=== PATIENT | male | born 1960 | race African-American/Black ===

== ENCOUNTER 2016-06-17 06:15 | Emergency (ER) | payer MEDICAID ==
[~2016-06-17] VITALS: Ht 170.2 cm; Wt 116.1 kg
[~2016-06-17 06:15] MED LIST: ASPI81CH43 PO; CLON0.1T PO; FURO40TA PO; LISI-646 PO; LOVA20TA4 PO; METO-462 PO; NOR5T PO; PANT40T PO; POTA-167 PO
[2016-06-17] MEDS ORDERED: SODIUM CHLORIDE 0.9% 1,000 ML IV ONE (06:54)
[2016-06-17 08:02] LABS: DEFINITIVE VIEW TRANSMISSION; Hemoglobin 13.5 g/dL (13.5-17.5); Mean Corpuscular Hemoglobin 28.4 pg (28.0-32.0); Mean Corpuscular Hgb Conc. 32.8 g/dL (32.0-36.0); Mean Corpuscular Volume 86.5 fL (80.0-100.0); Mean Platelet Volume 8.4 fL (7.4-10.4); Platelet Count (auto) 254 10^3/uL (140-450); White Blood Cell 5.3 10^3/uL (4.4-10.8)
[2016-06-17 08:17] LABS: Metamyelocytes % 0; Myelocytes % 0; Promyelocytes % 0; Reactive Lymphocytes 0
[2016-06-17 08:20] LABS: Albumin 3.5 g/dL (3.4-5.0); BUN/Creatinine Ratio 6.3; Bilirubin, Total 0.4 mg/dL (0.2-1.0); Calcium 8.5 mg/dL (8.5-10.1); Potassium 3.8 mmol/L (3.5-5.1); Total Protein 8.9 g/dL (6.4-8.2)
[2016-06-17 08:25] LABS: INR 1.01 (0.9-1.15); Partial Thromboplastin Time 21.6 sec (22.64-33.71); Prothrombin Time 10.4 sec (9.37-12.3)
[2016-06-17 08:28] LABS: Platelet Estimate Adequate
[2016-06-17 09:08] VITALS: BP 136/89
== END 2016-06-17 10:44 | disposition left against medical advice (07) ==
LOC: ER 06:16
DX: I11.0 Hypertensive heart disease with heart failure (principal); I50.9 Heart failure, unspecified; J44.9 Chronic obstructive pulmonary disease, unspecified; E11.9 Type 2 diabetes mellitus without complications; E78.5 Hyperlipidemia, unspecified; I25.2 Old myocardial infarction; R51 Headache; F17.210 Nicotine dependence, cigarettes, uncomplicated; Z90.49 Acquired absence of other specified parts of digestive tract; Z86.73 Personal history of transient ischemic attack (TIA), and cerebral infarction without residual deficits
CPT/HCPCS: 36415; 70450; 71010; 80053; 80320; 84484; 85007; 85025; 85027; 85610; 85730; 96360; 99285; J7030

== ENCOUNTER 2016-10-26 15:51 | Inpatient (IN) | payer MEDICAID ==
[~2016-10-26] VITALS: Ht 170.2 cm; Wt 105.4 kg
[2016-10-26] MEDS ORDERED: SODIUM CHLORIDE 0.9% 1,000 ML IV ONE (16:22)
[2016-10-26] MEDS ORDERED: MORPHINE SULF INJ 2 MG/ML SYRINGE 1ML IV ONE ×2 (16:30→22:45)
[2016-10-26] MEDS ORDERED: DONNATAL 5ml ORAL Elix (BELLADONNA ALK-PHENOBARB) PO ONE (16:30)
[2016-10-26] MEDS ORDERED: FAMOTIDINE 20 MG TAB PO ONE (16:30)
[2016-10-26] MEDS ORDERED: ALUM & MAG HYDROX-SIMETH LIQ(MAALOX) 30 ML PO ONE (16:30)
[2016-10-26] MEDS ORDERED: METOCLOPRAMIDE HCL 5MG/ml INJ 2ml VIAL IV ONE (16:30)
[2016-10-26] MEDS ORDERED: ONDANSETRON HCL 4 MG/2 ML VIAL ONE (17:00)
[2016-10-26] MEDS ORDERED: ONDANSETRON HCL 4 MG/2 ML VIAL IM ONE (17:15)
[2016-10-26] MEDS ORDERED: MEPERIDINE HCL (50 MG/ML) 1 ML VIAL IM ONE (18:00)
[2016-10-26 20:51] LABS: Basophils # (auto) 0 uL; Basophils % (auto) 0.1 % (0.0-2.0); Eosinophils # (auto) 0 uL; Hematocrit 47.5 % (41.0-53.0); Hemoglobin 15.7 g/dL (13.5-17.5); Lymphocytes # (auto) 1.1 uL; Lymphocytes % (auto) 13.2 % (10.0-50.0); Mean Corpuscular Volume 84.7 fL (80.0-100.0); Mean Platelet Volume 9.1 fL (7.4-10.4); Monocytes # (auto) 0.3 uL; Monocytes % (auto) 3.4 % (0.0-12.0); Neutrophils # (auto) 7.1 uL; Neutrophils % (auto) 83.3 % (37.0-80.0); Platelet Count (auto) 252 10^3/uL (140-450); Red Cell Distribution Width 16.4 % (11.6-16.0); White Blood Cell 8.6 10^3/uL (4.4-10.8)
[2016-10-26 21:09] LABS: Albumin 3.8 g/dL (3.4-5.0); BUN/Creatinine Ratio 9.6; Magnesium 1.7 mg/dL (1.6-2.6); Potassium 4.6 mmol/L (3.5-5.1)
[2016-10-26 21:11] LABS: Bilirubin, Total 0.7 mg/dL (0.2-1.0); Total Protein 10.7 g/dL (6.4-8.2)
[2016-10-26 21:16] LABS: Partial Thromboplastin Time 21.6 sec (22.64-33.71); Prothrombin Time 10.9 sec (9.37-12.3)
[2016-10-26 21:52] LABS: Urine Bilirubin Negative (Negative); Urine Color Yellow (Yellow); Urine Glucose Normal (Normal); Urine Hyaline Cast FEW /lpf (0 - 2); Urine Ketone Negative (Negative); Urine Nitrite Negative (Negative); Urine RBC 1 /hpf (0 - 3); Urine Squamous Epithelial Cell FEW /hpf (<5); Urine Urobilinogen Normal (Negative)
[2016-10-26] MEDS ORDERED: ONDANSETRON HCL 4 MG/2 ML VIAL IV ONE (22:15)
[2016-10-26 22:32] LABS: Urine Blood 1+ /uL (Negative)
[2016-10-26] MEDS ORDERED: cloNIDine HCL 0.1 MG TAB PO ONE (23:30)
[2016-10-27] MEDS ORDERED: SODIUM CHLORIDE 0.9% 1,000 ML IV SCH (00:18)
[2016-10-27] MEDS ORDERED: TEMAZEPAM 15 MG CAP PO PRN (00:30)
[2016-10-27] MEDS ORDERED: HYDROcodone-ACET 5/325MG TAB PO PRN (00:30)
[2016-10-27] MEDS ORDERED: ACETAMINOPHEN 325 MG TAB PO PRN (00:30)
[2016-10-27] MEDS ORDERED: DOCUSATE SOD 100 MG CAP PO PRN (00:30)
[2016-10-27] MEDS ORDERED: SPIRONOLACTONE 25 MG TAB PO ONE (01:00)
[2016-10-27] MEDS ORDERED: cloNIDine HCL 0.1 MG TAB PO ONE (01:00)
[2016-10-27] MEDS ORDERED: FUROSEMIDE 20 MG/2 ML VIAL IV ONE (01:00)
[2016-10-27] MEDS ORDERED: HYDROmorphone HCL 2 MG/ML VL IV ONE (01:30)
[2016-10-27 02:00] VITALS: BP 162/112
[2016-10-27] MEDS: MORPHINE SULF INJ 2 MG/ML SYRINGE 1ML IV PRN ×5 (02:20→20:27)
[2016-10-27] MEDS: ONDANSETRON HCL 4 MG/2 ML VIAL IV PRN ×5 (02:20→20:27)
[2016-10-27 05:15] VITALS: BP 132/107
[2016-10-27] MEDS: SODIUM CHLOR 0.9% PF (SALINE LOCK) 10ML VIAL IV SCH ×3 (06:41→21:46)
[2016-10-27] MEDS: SPIRONOLACTONE 25 MG TAB PO SCH ×3 (06:50→21:46)
[2016-10-27 09:00] VITALS: BP 167/110
[2016-10-27] MEDS ORDERED: FAMOTIDINE (10MG/ML) 2ML VL IV SCH (10:00)
[2016-10-27] MEDS: METOPROLOL TARTRATE 25 MG TAB PO SCH ×2 (10:16→21:46)
[2016-10-27] MEDS: FUROSEMIDE 20 MG/2 ML VIAL IV SCH (10:17)
[2016-10-27 13:00] VITALS: BP 153/105
[2016-10-27 17:00] VITALS: BP 148/74
[2016-10-27] MEDS ORDERED: cloNIDine HCL 0.1 MG TAB PO PRN (17:00)
[2016-10-27] MEDS: FAMOTIDINE (10MG/ML) 2ML VL IV SCH (21:45)
[2016-10-27 22:00] VITALS: BP 153/88
[2016-10-28] MEDS: ONDANSETRON HCL 4 MG/2 ML VIAL IV PRN ×3 (02:36→10:48)
[2016-10-28] MEDS: MORPHINE SULF INJ 2 MG/ML SYRINGE 1ML IV PRN ×3 (02:37→10:49)
[2016-10-28 05:00] VITALS: BP 136/90
[2016-10-28 06:17] LABS: Basophils # (auto) 0 uL; Basophils % (auto) 0.3 % (0.0-2.0); Eosinophils # (auto) 0.1 uL; Hematocrit 44.2 % (41.0-53.0); Hemoglobin 14.7 g/dL (13.5-17.5); Lymphocytes % (auto) 24.9 % (10.0-50.0); Mean Corpuscular Hemoglobin 28.2 pg (28.0-32.0); Mean Corpuscular Hgb Conc. 33.4 g/dL (32.0-36.0); Mean Corpuscular Volume 84.4 fL (80.0-100.0); Mean Platelet Volume 9.5 fL (7.4-10.4); Monocytes # (auto) 0.7 uL; Monocytes % (auto) 8.9 % (0.0-12.0); Neutrophils # (auto) 5.2 uL; Neutrophils % (auto) 64.9 % (37.0-80.0); Platelet Count (auto) 236 10^3/uL (140-450); Red Cell Distribution Width 16.5 % (11.6-16.0)
[2016-10-28 06:34] LABS: Albumin 3.2 g/dL (3.4-5.0); BUN/Creatinine Ratio 14.3; Bilirubin, Total 1.3 mg/dL (0.2-1.0); Total Protein 9.5 g/dL (6.4-8.2)
[2016-10-28] MEDS: SODIUM CHLOR 0.9% PF (SALINE LOCK) 10ML VIAL IV SCH ×2 (06:42→14:00)
[2016-10-28] MEDS: SPIRONOLACTONE 25 MG TAB PO SCH ×2 (06:42→14:00)
[2016-10-28 08:00] VITALS: BP 145/81
[2016-10-28 09:00] VITALS: BP 145/81
[2016-10-28] MEDS: METOPROLOL TARTRATE 25 MG TAB PO SCH (10:24)
[2016-10-28] MEDS: FUROSEMIDE 20 MG/2 ML VIAL IV SCH (10:26)
[2016-10-28] MEDS: FAMOTIDINE (10MG/ML) 2ML VL IV SCH (10:26)
[2016-10-28] MEDS ORDERED: SPIR25TA88 PO (11:59)
[2016-10-28] MEDS ORDERED: PANT40TA2 PO (11:59)
[2016-10-28] MEDS ORDERED: ONDA4TAB5 PO (12:03)
[2016-10-28 13:00] VITALS: BP 130/83
[2016-10-28 14:53] VITALS: BP 130/83
== END 2016-10-28 16:55 | disposition home or self-care (01) | DRG 241 ==
LOC: EDBD 15:51 → ER 16:02 → TELE-WESTW 16:03
PROVIDERS: ADMIT Emergency Medicine; ATTEND Internal Medicine
DX: K29.20 Alcoholic gastritis without bleeding (principal); I11.0 Hypertensive heart disease with heart failure; I50.9 Heart failure, unspecified; K70.30 Alcoholic cirrhosis of liver without ascites; J44.9 Chronic obstructive pulmonary disease, unspecified; I25.10 Atherosclerotic heart disease of native coronary artery without angina pectoris; K21.9 Gastro-esophageal reflux disease without esophagitis; Z86.73 Personal history of transient ischemic attack (TIA), and cerebral infarction without residual deficits; E11.9 Type 2 diabetes mellitus without complications; E66.9 Obesity, unspecified; Z68.36 Body mass index [BMI] 36.0-36.9, adult; F10.10 Alcohol abuse, uncomplicated; F17.210 Nicotine dependence, cigarettes, uncomplicated; G47.30 Sleep apnea, unspecified; I25.2 Old myocardial infarction; Z82.49 Family history of ischemic heart disease and other diseases of the circulatory system; Z83.3 Family history of diabetes mellitus; Z79.82 Long term (current) use of aspirin; Z90.49 Acquired absence of other specified parts of digestive tract; Z84.89 Family history of other specified conditions; G40.509 Epileptic seizures related to external causes, not intractable, without status epilepticus
CPT/HCPCS: 36415; 74176; 80053; 80320; 81001; 82140; 83690; 83735; 84443; 85025; 85610; 85730; 93005; 94660; 94761; 96361; 96374; 96375; 96376; J2405; J3490

== ENCOUNTER 2017-03-01 23:48 | Inpatient (IN) | payer MEDICAID ==
[~2017-03-01] VITALS: Ht 170.2 cm; Wt 109.7 kg
[~2017-03-01 23:48] MED LIST changes: +HYDR-4663 PO; -LOVA20TA4 PO; -NOR5T PO; +ONDA4TAB5 PO; +PANT40TA2 PO; +SPIR25TA88 PO
[2017-03-02] MEDS ORDERED: cloNIDine HCL 0.1 MG TAB PO ONE ×2 (00:15→05:30)
[2017-03-02] MEDS ORDERED: hydrALAZINE HCL 20 MG/ML VL IV ONE (00:15)
[2017-03-02 01:13] LABS: Alkaline Phosphatase 143 U/L (45-117); Amylase 61 U/L (25-115); Anion Gap 11 (5-15); Aspartate Aminotransferase 157 U/L (15-37); BUN/Creatinine Ratio 7.9; Blood Urea Nitrogen 8 mg/dL (7-18); Calcium 9.2 mg/dL (8.5-10.1); Carbon Dioxide 22 mmol/L (21-32); Chloride 104 mmol/L (98-107); GFR African American 98 mL/min; GFR Non-African American 81 mL/min; Glucose 182 mg/dL (74-106); Magnesium 1.6 mg/dL (1.6-2.6); Potassium 3.7 mmol/L (3.5-5.1); Sodium 137 mmol/L (136-145); Total Protein 10.6 g/dL (6.4-8.2)
[2017-03-02] MEDS ORDERED: HYDROmorphone HCL 2 MG/ML VL IV ONE (02:30)
[2017-03-02] MEDS ORDERED: ONDANSETRON HCL 4 MG/2 ML VIAL IV ONE (02:30)
[2017-03-02 03:38] LABS: Urine Blood 1+ /uL (Negative); Urine Color Brown (Yellow); Urine Glucose TRACE mg/dL (Normal); Urine Ketone 1+ (Negative); Urine Mucus FEW (None Seen); Urine Nitrite Negative (Negative); Urine RBC 14 /hpf (0 - 3); Urine Squamous Epithelial Cell FEW /hpf (<5)
[2017-03-02 03:42] LABS: Urine Bilirubin POSITIVE (Negative)
[2017-03-02] MEDS ORDERED: PROMETHAZINE HCL 25 MG/ML 1ML IV ONE (03:45)
[2017-03-02] MEDS ORDERED: LORazepam 2MG/ML-1ML VIAL IV ONE (03:45)
[2017-03-02] MEDS ORDERED: cloNIDine HCL 0.1 MG TAB ONE (05:21)
[2017-03-02 05:47] LABS: Basophils # (auto) 0 uL; Basophils % (auto) 0.5 % (0.0-2.0); Eosinophils # (auto) 0 uL; Hematocrit 52.5 % (41.0-53.0); Hemoglobin 18.7 g/dL (13.5-17.5); Lymphocytes % (auto) 12.1 % (10.0-50.0); Mean Corpuscular Hemoglobin 31.3 pg (28.0-32.0); Mean Corpuscular Hgb Conc. 35.6 g/dL (32.0-36.0); Mean Corpuscular Volume 87.8 fL (80.0-100.0); Mean Platelet Volume 9.3 fL (6.9-10.8); Monocytes # (auto) 0.3 uL; Neutrophils # (auto) 6.7 uL; Neutrophils % (auto) 83.4 % (37.0-80.0); Nucleated Red Blood Cells % 1.3 %; Platelet Count (auto) 188 10^3/uL (140-450); Red Cell Distribution Width 14.5 % (11.8-14.3)
[2017-03-02] MEDS ORDERED: LABETALOL HCL 5 MG/ML 4ML SYRINGE IV ONE ×3 (06:52→08:30)
[2017-03-02] MEDS ORDERED: SODIUM CHLORIDE 0.9% 1,000 ML IV ONE (08:17)
[2017-03-02] MEDS ORDERED: LORazepam 0.5 MG TAB PO PRN (08:30)
[2017-03-02] MEDS ORDERED: cefTRIAXone 1GM/50ML D5W 50 ML IV ONE (08:30)
[2017-03-02] MEDS ORDERED: MORPHINE SULF INJ 2 MG/ML SYRINGE 1ML IV ONE (08:30)
[2017-03-02] MEDS ORDERED: DEXTROSE (50%) 50ML SYRG IV PRN (08:30)
[2017-03-02] MEDS ORDERED: chlordiazePOXIDE HCL 25 MG CAP PO PRN (08:30)
[2017-03-02] MEDS ORDERED: MORPHINE SULF INJ 2 MG/ML SYRINGE 1ML IV PRN (08:30)
[2017-03-02] MEDS ORDERED: THIAMINE HCL 100 MG/ML 2ML VIAL IV ONE (08:30)
[2017-03-02] MEDS ORDERED: TEMAZEPAM 15 MG CAP PO PRN (08:30)
[2017-03-02] MEDS ORDERED: LABETALOL HCL 5 MG/ML ML 20ML VIAL IV PRN (08:30)
[2017-03-02] MEDS ORDERED: LABETALOL HCL 5 MG/ML 4ML SYRINGE IV PRN ×2 (08:30)
[2017-03-02] MEDS ORDERED: NITROGLYCERIN 0.4 MG SL TAB SL PRN (08:30)
[2017-03-02] MEDS: cloNIDine HCL 0.1 MG TAB PO SCH ×2 (08:49→22:00)
[2017-03-02] MEDS: LISINOPRIL 20 MG TAB PO SCH ×2 (08:50→22:00)
[2017-03-02] MEDS: PANTOPRAZOLE 40 MG TAB PO SCH (08:50)
[2017-03-02] MEDS: METOPROLOL TARTRATE 50 MG TAB PO SCH ×2 (08:52→22:00)
[2017-03-02] MEDS: THIAMINE HCL 100 MG/ML 2ML VIAL IV SCH (08:52)
[2017-03-02] MEDS: cefTRIAXone 1GM/50ML D5W 50 ML IV SCH (08:56)
[2017-03-02] MEDS: PROMETHAZINE HCL 25 MG/ML 1ML IV PRN ×2 (09:05→16:26)
[2017-03-02] MEDS ORDERED: METOPROLOL TARTRATE 50 MG PO SCH (10:00)
[2017-03-02] MEDS: InsuLIN REG 1unit/0.01ml Soln (100units/ml) SC SCH ×2 (11:03→17:47)
[2017-03-02] MEDS: ACCU-CHEK COMFORT CURVE STRIP VI SCH ×2 (11:04→17:47)
[2017-03-02] MEDS: chlordiazePOXIDE HCL 5 MG CAP PO SCH ×2 (11:55→17:46)
[2017-03-02] MEDS: MORPHINE SULF INJ 2 MG/ML SYRINGE 1ML IV PRN (16:17)
[2017-03-02 16:31] VITALS: BP 102/68
[2017-03-02 20:00] VITALS: BP 107/57
[2017-03-02 22:00] VITALS: BP 107/57
[2017-03-03] MEDS: ACCU-CHEK COMFORT CURVE STRIP VI SCH ×4 (00:20→18:16)
[2017-03-03] MEDS: chlordiazePOXIDE HCL 5 MG CAP PO SCH ×4 (00:21→18:15)
[2017-03-03] MEDS: MORPHINE SULF INJ 2 MG/ML SYRINGE 1ML IV PRN ×4 (03:53→22:14)
[2017-03-03 05:00] VITALS: BP 130/80
[2017-03-03 05:54] LABS: Basophils # (auto) 0 uL; Basophils % (auto) 0.7 % (0.0-2.0); Eosinophils # (auto) 0.1 uL; Eosinophils % (auto) 0.8 % (0.0-7.0); Hematocrit 44.1 % (41.0-53.0); Lymphocytes # (auto) 1.4 uL; Lymphocytes % (auto) 20.9 % (10.0-50.0); Mean Corpuscular Hemoglobin 29.9 pg (28.0-32.0); Mean Corpuscular Volume 88.1 fL (80.0-100.0); Mean Platelet Volume 9.1 fL (6.9-10.8); Monocytes # (auto) 0.5 uL; Monocytes % (auto) 6.7 % (0.0-12.0); Neutrophils # (auto) 4.9 uL; Neutrophils % (auto) 70.9 % (37.0-80.0); Nucleated Red Blood Cells % 0.1 %; Platelet Count (auto) 158 10^3/uL (140-450); Red Cell Distribution Width 14.4 % (11.8-14.3); White Blood Cell 6.9 10^3/uL (4.4-10.8)
[2017-03-03] MEDS: InsuLIN REG 1unit/0.01ml Soln (100units/ml) SC SCH ×4 (06:00→18:00)
[2017-03-03 06:20] LABS: Potassium 3.4 mmol/L (3.5-5.1)
[2017-03-03 06:24] LABS: BUN/Creatinine Ratio 13.1; Calcium 8.4 mg/dL (8.5-10.1)
[2017-03-03 06:26] LABS: Total Protein 8.5 g/dL (6.4-8.2)
[2017-03-03] MEDS: THIAMINE HCL 100 MG/ML 2ML VIAL IV SCH (09:51)
[2017-03-03] MEDS: cefTRIAXone 1GM/50ML D5W 50 ML IV SCH (09:51)
[2017-03-03] MEDS: PANTOPRAZOLE 40 MG TAB PO SCH (09:52)
[2017-03-03] MEDS: METOPROLOL TARTRATE 50 MG TAB PO SCH ×2 (09:52→22:08)
[2017-03-03] MEDS: cloNIDine HCL 0.1 MG TAB PO SCH ×2 (09:52→22:08)
[2017-03-03] MEDS: LISINOPRIL 20 MG TAB PO SCH ×2 (09:53→22:09)
[2017-03-03 11:43] VITALS: BP 136/85
[2017-03-03] MEDS ORDERED: POTASSIUM CHL 20 Meq TABLET PO ONE ×2 (14:15→14:45)
[2017-03-03] MEDS ORDERED: LACTULOSE 20Gm/30ML SOLN PO ONE ×2 (14:15→14:45)
[2017-03-03 17:47] VITALS: BP 121/76
[2017-03-03] MEDS ORDERED: GABAPENTIN 100 MG CAP PO SCH (22:00)
[2017-03-03 22:07] VITALS: BP 140/84
[2017-03-03] MEDS: PROMETHAZINE HCL 25 MG/ML 1ML IV PRN (22:15)
[2017-03-04] MEDS: chlordiazePOXIDE HCL 5 MG CAP PO SCH ×3 (00:47→12:54)
[2017-03-04] MEDS: ACCU-CHEK COMFORT CURVE STRIP VI SCH ×3 (00:48→11:31)
[2017-03-04 04:07] VITALS: BP 147/9
[2017-03-04] MEDS: MORPHINE SULF INJ 2 MG/ML SYRINGE 1ML IV PRN ×2 (05:04→10:13)
[2017-03-04] MEDS: PROMETHAZINE HCL 25 MG/ML 1ML IV PRN ×2 (05:04→10:13)
[2017-03-04] MEDS: InsuLIN REG 1unit/0.01ml Soln (100units/ml) SC SCH ×3 (06:00→11:32)
[2017-03-04 07:54] VITALS: BP 117/72
[2017-03-04] MEDS: cloNIDine HCL 0.1 MG TAB PO SCH (10:00)
[2017-03-04] MEDS: LISINOPRIL 20 MG TAB PO SCH (10:00)
[2017-03-04] MEDS: THIAMINE HCL 100 MG/ML 2ML VIAL IV SCH (10:22)
[2017-03-04] MEDS: METOPROLOL TARTRATE 50 MG TAB PO SCH (10:22)
[2017-03-04] MEDS: PANTOPRAZOLE 40 MG TAB PO SCH (10:23)
[2017-03-04 12:04] VITALS: BP 129/76
[2017-03-04 13:07] VITALS: BP 135/77
[2017-03-04 13:28] VITALS: BP 135/77
== END 2017-03-04 15:29 | disposition home or self-care (01) | DRG 241 ==
LOC: EDBD 23:48 → ER 23:56 → TELE 23:57 → TELE-EAST 03-02 16:27
PROVIDERS: ADMIT Internal Medicine; ATTEND Internal Medicine
DX: K29.20 Alcoholic gastritis without bleeding (principal); K70.30 Alcoholic cirrhosis of liver without ascites; I11.0 Hypertensive heart disease with heart failure; I50.9 Heart failure, unspecified; I69.354 Hemiplegia and hemiparesis following cerebral infarction affecting left non-dominant side; Z68.41 Body mass index [BMI] 40.0-44.9, adult; B19.20 Unspecified viral hepatitis C without hepatic coma; F17.210 Nicotine dependence, cigarettes, uncomplicated; E11.9 Type 2 diabetes mellitus without complications; F10.10 Alcohol abuse, uncomplicated; Y90.9 Presence of alcohol in blood, level not specified; E87.6 Hypokalemia; K59.00 Constipation, unspecified; K21.9 Gastro-esophageal reflux disease without esophagitis; J44.9 Chronic obstructive pulmonary disease, unspecified; E78.5 Hyperlipidemia, unspecified; E66.01 Morbid (severe) obesity due to excess calories; I25.2 Old myocardial infarction; I25.10 Atherosclerotic heart disease of native coronary artery without angina pectoris; Z82.49 Family history of ischemic heart disease and other diseases of the circulatory system; Z83.3 Family history of diabetes mellitus; Z90.49 Acquired absence of other specified parts of digestive tract; Z71.6 Tobacco abuse counseling; Z91.14 Patient's other noncompliance with medication regimen
CPT/HCPCS: 36415; 70450; 71020; 74176; 80053; 80307; 80320; 81001; 82150; 82962; 83036; 83690; 83735; 84484; 85025; 85652; 86141; 87086; 93005; 93970; 96365; 96375; 96376; J0696; J1815; J2405; J3490

== ENCOUNTER 2017-07-22 14:57 | Inpatient (IN) | payer MEDICAID ==
[~2017-07-22] VITALS: Ht 170.2 cm; Wt 108.8 kg
[~2017-07-22 14:57] MED LIST changes: -FURO40TA PO; -HYDR-4663 PO; +HYDR-4683 PO; -ONDA4TAB5 PO; -PANT40TA2 PO; -POTA-167 PO; -SPIR25TA88 PO
[2017-07-22] MEDS ORDERED: SODIUM CHLORIDE 0.9% 1,000 ML IVB ONE (15:11)
[2017-07-22] MEDS ORDERED: SODIUM CHLORIDE 0.9% 1,000 ML IV ONE (15:11)
[2017-07-22] MEDS ORDERED: PIPERACILLIN-TAZOB 3.375GM 50 ML IV ONE (15:15)
[2017-07-22] MEDS ORDERED: ONDANSETRON HCL 4 MG/2 ML VIAL IV ONE (15:15)
[2017-07-22] MEDS ORDERED: MORPHINE SULFATE 4 MG/ML SYR/VIAL IV ONE (15:15)
[2017-07-22] MEDS ORDERED: NICARDIPINE 25MG/250ML BAG KIT 250 ML IV SCH (15:29)
[2017-07-22 16:09] LABS: Basophils # (auto) 0.1 uL; Basophils % (auto) 0.9 % (0.0-2.0); Eosinophils # (auto) 0 uL; Eosinophils % (auto) 0.2 % (0.0-7.0); Hemoglobin 15.3 g/dL (13.5-17.5); Lymphocytes # (auto) 1.5 uL; Lymphocytes % (auto) 20.9 % (10.0-50.0); Mean Corpuscular Hemoglobin 29.3 pg (28.0-32.0); Mean Corpuscular Volume 86.1 fL (80.0-100.0); Monocytes # (auto) 0.4 uL; Monocytes % (auto) 5.2 % (0.0-12.0); Neutrophils # (auto) 5.2 uL; Neutrophils % (auto) 72.8 % (37.0-80.0); Nucleated Red Blood Cells % 0.6 %; Platelet Count (auto) 303 10^3/uL (140-450); Red Blood Cells 5.23 10^6/uL (4.5-5.90); White Blood Cell 7.1 10^3/uL (4.4-10.8)
[2017-07-22 16:21] LABS: Alanine Aminotransferase 185 U/L (16-61); Albumin 3.3 g/dL (3.4-5.0); Alkaline Phosphatase 138 U/L (45-117); Anion Gap 12 (5-15); Aspartate Aminotransferase 220 U/L (15-37); BUN/Creatinine Ratio 10.4; Bilirubin, Total 0.8 mg/dL (0.2-1.0); Blood Urea Nitrogen 10 mg/dL (7-18); Calcium 9.2 mg/dL (8.5-10.1); Carbon Dioxide 25 mmol/L (21-32); Chloride 103 mmol/L (98-107); GFR African American 104 mL/min; GFR Non-African American 86 mL/min; Glucose 158 mg/dL (74-106); Lipase 167 U/L (73-393); Sodium 140 mmol/L (136-145); Total Protein 10.3 g/dL (6.4-8.2)
[2017-07-22] MEDS ORDERED: MORPHINE SULFATE 4 MG/ML SYR/VIAL IV PRN ×2 (16:45)
[2017-07-22] MEDS ORDERED: PANTOPRAZOLE 40 MG/10 ML VIAL IV ONE (16:45)
[2017-07-22] MEDS ORDERED: NITROGLYCERIN 0.4 MG SL TAB SL PRN (16:45)
[2017-07-22] MEDS ORDERED: ONDANSETRON HCL 4 MG/2 ML VIAL IV PRN (16:45)
[2017-07-22 17:08] LABS: INR 0.98 (0.9-1.15); Partial Thromboplastin Time 23.9 sec (22.64-33.71); Prothrombin Time 10.7 sec (9.37-12.3)
[2017-07-22] MEDS ORDERED: DEXTROSE (50%) 50ML SYRG IV PRN (17:15)
[2017-07-22] MEDS: NICARDIPINE 25MG/250ML BAG KIT 250 ML IV SCH ×2 (17:20→21:48)
[2017-07-22] MEDS: ASPirin 81 mg TAB PO SCH (17:29)
[2017-07-22] MEDS: LORazepam 2MG/ML-1ML VIAL IV PRN (17:29)
[2017-07-22] MEDS: chlordiazePOXIDE HCL 25 MG CAP PO PRN (17:30)
[2017-07-22] MEDS: PROMETHAZINE HCL 25 MG/ML 1ML IV PRN (17:30)
[2017-07-22] MEDS ORDERED: IOHEXOL 300 MG/ML 100ML BOTTLE IJ ONE (17:42)
[2017-07-22 20:30] LABS: Urine Bacteria NONE SEEN /hpf (None Seen); Urine Blood Negative /uL (Negative); Urine Specific Gravity 1.012 (1.001-1.035); Urine WBC <1 /hpf (0 - 3)
[2017-07-22 20:40] LABS: Alcohol, Urine < 3.0 mg/dL (0-5); Amphetamine Screen, Urine NEGATIVE (NEGATIVE); Barbiturate Scree,Urine NEGATIVE (NEGATIVE); Benzodiazephine Screen, Urine NEGATIVE (NEGATIVE); Cannabinoid Screen, Urine NEGATIVE (NEGATIVE); Cocaine Screen, Urine NEGATIVE (NEGATIVE); Opiate Scree,Urine POSITIVE (NEGATIVE); Phencyclidine Screen, Urine NEGATIVE (NEGATIVE)
[2017-07-22] MEDS: THIAMINE INJ 100 MG, MULTIPLE VITAMIN 10 ML, FOLIC ACID 1 MG, MAGNESIUM SULF SDV 50% 8 ... IV SCH ×5 (21:00)
[2017-07-22] MEDS: ACCU-CHEK COMFORT CURVE STRIP VI SCH (21:52)
[2017-07-22] MEDS ORDERED: HYDROcodone-ACET 5/325MG TAB PO SCH (22:00)
[2017-07-22] MEDS: cloNIDine HCL 0.1 MG TAB PO SCH (22:01)
[2017-07-22] MEDS: LISINOPRIL 20 MG TAB PO SCH (22:01)
[2017-07-22] MEDS: InsuLIN REG 1unit/0.01ml Soln (100units/ml) SC SCH (22:01)
[2017-07-23] VITALS (30 sets, daily range): BP systolic 84–177; BP diastolic 47–114
[2017-07-23] MEDS: MORPHINE SULFATE 4 MG/ML SYR/VIAL IV PRN ×2 (00:28→10:07)
[2017-07-23] MEDS: PROMETHAZINE HCL 25 MG/ML 1ML IV PRN ×3 (00:28→16:54)
[2017-07-23] MEDS: NICARDIPINE 25MG/250ML BAG KIT 250 ML IV SCH ×2 (01:40→08:23)
[2017-07-23] MEDS: chlordiazePOXIDE HCL 25 MG CAP PO PRN ×2 (03:32→10:06)
[2017-07-23] MEDS: LORazepam 2MG/ML-1ML VIAL IV PRN (03:32)
[2017-07-23] MEDS: PANTOPRAZOLE 40 MG/10 ML VIAL IV SCH ×2 (06:21→17:31)
[2017-07-23 07:00] LABS: Albumin 3.2 g/dL (3.4-5.0); BUN/Creatinine Ratio 10.7; Calcium 9.3 mg/dL (8.5-10.1); Potassium 3.2 mmol/L (3.5-5.1)
[2017-07-23 07:02] LABS: Bilirubin, Total 1.1 mg/dL (0.2-1.0); Total Protein 10.2 g/dL (6.4-8.2)
[2017-07-23 07:04] LABS: Basophils # (auto) 0.1 uL; Basophils % (auto) 0.6 % (0.0-2.0); Eosinophils # (auto) 0 uL; Hematocrit 42.8 % (41.0-53.0); Hemoglobin 14.8 g/dL (13.5-17.5); Lymphocytes # (auto) 1.9 uL; Lymphocytes % (auto) 18.9 % (10.0-50.0); Mean Corpuscular Hemoglobin 29.6 pg (28.0-32.0); Mean Corpuscular Hgb Conc. 34.5 g/dL (32.0-36.0); Mean Corpuscular Volume 85.7 fL (80.0-100.0); Monocytes # (auto) 0.8 uL; Monocytes % (auto) 8.3 % (0.0-12.0); Neutrophils # (auto) 7.3 uL; Neutrophils % (auto) 72.2 % (37.0-80.0); Nucleated Red Blood Cells % 0.8 %; Platelet Count (auto) 281 10^3/uL (140-450); Red Cell Distribution Width 15.3 % (11.8-14.3); White Blood Cell 10.2 10^3/uL (4.4-10.8)
[2017-07-23] MEDS: ACCU-CHEK COMFORT CURVE STRIP VI SCH ×4 (07:39→22:00)
[2017-07-23] MEDS: InsuLIN REG 1unit/0.01ml Soln (100units/ml) SC SCH ×4 (08:15→23:11)
[2017-07-23] MEDS ORDERED: PANTOPRAZOLE 40 MG/10 ML VIAL IV SCH (10:00)
[2017-07-23] MEDS: ASPirin 81 mg TAB PO SCH (10:07)
[2017-07-23] MEDS: LISINOPRIL 20 MG TAB PO SCH ×2 (10:08→22:30)
[2017-07-23] MEDS: cloNIDine HCL 0.1 MG TAB PO SCH ×2 (10:08→22:29)
[2017-07-23] MEDS: THIAMINE INJ 100 MG, MULTIPLE VITAMIN 10 ML, FOLIC ACID 1 MG, MAGNESIUM SULF SDV 50% 8 ... IV SCH ×5 (13:16)
[2017-07-23] MEDS ORDERED: POTASSIUM CHL 20 Meq TABLET PO ONE (15:30)
[2017-07-23] MEDS ORDERED: METOPROLOL TARTRATE 50 MG TAB PO ONE (15:45)
[2017-07-23] MEDS: HYDROcodone-ACET 5/325MG TAB PO PRN (17:27)
[2017-07-23 20:43] LABS: Potassium 3.4 mmol/L (3.5-5.1)
[2017-07-23 21:13] LABS: Calcium 8.6 mg/dL (8.5-10.1)
[2017-07-23] MEDS: METOPROLOL TARTRATE 50 MG TAB PO SCH (22:29)
[2017-07-24] MEDS: LORazepam 2MG/ML-1ML VIAL IV PRN ×3 (00:46→20:38)
[2017-07-24] MEDS: PROMETHAZINE HCL 25 MG/ML 1ML IV PRN ×3 (00:47→19:58)
[2017-07-24] MEDS: chlordiazePOXIDE HCL 25 MG CAP PO PRN ×4 (00:52→20:38)
[2017-07-24] MEDS: HYDROcodone-ACET 5/325MG TAB PO PRN (01:00)
[2017-07-24 05:01] VITALS: BP 154/91
[2017-07-24] MEDS: PANTOPRAZOLE 40 MG/10 ML VIAL IV SCH ×2 (06:24→18:12)
[2017-07-24] MEDS: ACCU-CHEK COMFORT CURVE STRIP VI SCH ×4 (06:45→22:00)
[2017-07-24] MEDS: InsuLIN REG 1unit/0.01ml Soln (100units/ml) SC SCH ×4 (06:45→22:00)
[2017-07-24 07:06] LABS: Basophils # (auto) 0 uL; Basophils % (auto) 0.5 % (0.0-2.0); Eosinophils # (auto) 0 uL; Eosinophils % (auto) 0.3 % (0.0-7.0); Hematocrit 45.3 % (41.0-53.0); Hemoglobin 15.5 g/dL (13.5-17.5); Lymphocytes # (auto) 1.5 uL; Lymphocytes % (auto) 15.9 % (10.0-50.0); Mean Corpuscular Hemoglobin 29.4 pg (28.0-32.0); Mean Corpuscular Hgb Conc. 34.2 g/dL (32.0-36.0); Mean Corpuscular Volume 85.8 fL (80.0-100.0); Monocytes # (auto) 1.2 uL; Monocytes % (auto) 13.2 % (0.0-12.0); Neutrophils # (auto) 6.5 uL; Neutrophils % (auto) 70.1 % (37.0-80.0); Nucleated Red Blood Cells % 0.4 %; Platelet Count (auto) 284 10^3/uL (140-450); Red Blood Cells 5.28 10^6/uL (4.5-5.90); White Blood Cell 9.3 10^3/uL (4.4-10.8)
[2017-07-24 07:15] LABS: Albumin 3.1 g/dL (3.4-5.0); Calcium 9.3 mg/dL (8.5-10.1); Magnesium 2.4 mg/dL (1.6-2.6)
[2017-07-24 07:21] LABS: BUN/Creatinine Ratio 12.9; Bilirubin, Total 1.5 mg/dL (0.2-1.0)
[2017-07-24 07:52] VITALS: BP 140/90
[2017-07-24 08:00] VITALS: BP 140/90
[2017-07-24 09:39] LABS: Hepatitis B Surface Antigen Negative (Negative)
[2017-07-24 10:05] LABS: Hepatitis B Core IgM Negative
[2017-07-24 10:06] LABS: Hepatitis A Ab IgM Negative
[2017-07-24 10:26] LABS: Hepatitis C Antibody Positive (Negative)
[2017-07-24] MEDS: ASPirin 81 mg TAB PO SCH (11:01)
[2017-07-24] MEDS: LISINOPRIL 20 MG TAB PO SCH ×2 (11:02→22:00)
[2017-07-24] MEDS: cloNIDine HCL 0.1 MG TAB PO SCH ×2 (11:02→22:00)
[2017-07-24] MEDS: METOPROLOL TARTRATE 50 MG TAB PO SCH ×2 (11:03→22:00)
[2017-07-24] MEDS: THIAMINE INJ 100 MG, MULTIPLE VITAMIN 10 ML, FOLIC ACID 1 MG, MAGNESIUM SULF SDV 50% 8 ... IV SCH ×5 (11:19)
[2017-07-24 11:52] VITALS: BP 145/97
[2017-07-24] MEDS ORDERED: HYDR-531 PO (14:25)
[2017-07-24] MEDS: HYDROcodone-ACET 10/325MG TAB PO PRN (14:40)
[2017-07-24 16:50] VITALS: BP 90/59
[2017-07-24 22:25] VITALS: BP 113/63
[2017-07-25 05:10] VITALS: BP 91/50
[2017-07-25] MEDS: PANTOPRAZOLE 40 MG/10 ML VIAL IV SCH ×2 (06:53→22:10)
[2017-07-25] MEDS: InsuLIN REG 1unit/0.01ml Soln (100units/ml) SC SCH ×4 (07:00→22:05)
[2017-07-25] MEDS: ACCU-CHEK COMFORT CURVE STRIP VI SCH ×4 (07:09→22:09)
[2017-07-25 07:34] LABS: Albumin 3.1 g/dL (3.4-5.0); BUN/Creatinine Ratio 11.8; Calcium 8.5 mg/dL (8.5-10.1); Potassium 3.8 mmol/L (3.5-5.1)
[2017-07-25 07:37] LABS: Bilirubin, Total 0.9 mg/dL (0.2-1.0); Total Protein 9.4 g/dL (6.4-8.2)
[2017-07-25 08:00] VITALS: BP 94/73
[2017-07-25 09:00] VITALS: BP 94/73
[2017-07-25] MEDS: cloNIDine HCL 0.1 MG TAB PO SCH ×2 (10:00→22:00)
[2017-07-25] MEDS: LISINOPRIL 20 MG TAB PO SCH (10:00)
[2017-07-25] MEDS: METOPROLOL TARTRATE 50 MG TAB PO SCH (10:00)
[2017-07-25] MEDS: ASPirin 81 mg TAB PO SCH (10:43)
[2017-07-25] MEDS ORDERED: guaiFENesin-DM 100/10mg/5ml SYR PO PRN (11:30)
[2017-07-25] MEDS: SODIUM CHLORIDE 0.9% 1,000 ML IV SCH (15:00)
[2017-07-25] MEDS: SALINE 0.65 % NASAL SPRAY 45ML BOTTLE EACHNOSTRI SCH ×2 (17:47→22:07)
[2017-07-25] MEDS: THIAMINE HCL 100 MG TAB PO SCH (17:56)
[2017-07-25 19:30] VITALS: BP 80/60
[2017-07-25 20:38] VITALS: BP 80/60
[2017-07-25 22:00] VITALS: BP 82/57
[2017-07-25] MEDS ORDERED: METOPROLOL TARTRATE 25 MG TAB PO SCH (22:00)
[2017-07-26] MEDS: SODIUM CHLORIDE 0.9% 1,000 ML IV SCH ×2 (00:28→14:10)
[2017-07-26] MEDS: LORazepam 2MG/ML-1ML VIAL IV PRN (04:47)
[2017-07-26] MEDS: HYDROcodone-ACET 10/325MG TAB PO PRN ×3 (04:48→16:40)
[2017-07-26 05:00] VITALS: BP 116/69
[2017-07-26] MEDS: PANTOPRAZOLE 40 MG/10 ML VIAL IV SCH (06:00)
[2017-07-26] MEDS: InsuLIN REG 1unit/0.01ml Soln (100units/ml) SC SCH (06:09)
[2017-07-26] MEDS: ACCU-CHEK COMFORT CURVE STRIP VI SCH (06:09)
[2017-07-26 08:23] VITALS: BP 110/76
[2017-07-26] MEDS: chlordiazePOXIDE HCL 25 MG CAP PO PRN (09:00)
[2017-07-26] MEDS: cloNIDine HCL 0.1 MG TAB PO SCH ×2 (10:00→22:00)
[2017-07-26] MEDS: THIAMINE HCL 100 MG TAB PO SCH (10:00)
[2017-07-26] MEDS: ASPirin 81 mg TAB PO SCH (10:00)
[2017-07-26] MEDS: SALINE 0.65 % NASAL SPRAY 45ML BOTTLE EACHNOSTRI SCH ×2 (10:00→22:09)
[2017-07-26 10:27] LABS: BUN/Creatinine Ratio 22.2; Bilirubin, Total 0.7 mg/dL (0.2-1.0); Calcium 8.2 mg/dL (8.5-10.1); Potassium 3.8 mmol/L (3.5-5.1); Total Protein 9.1 g/dL (6.4-8.2)
[2017-07-26 11:58] VITALS: BP 118/58
[2017-07-26] MEDS: MULTIPLE VITAMIN 10 ML, FOLIC ACID 1 MG, MAGNESIUM SULF SDV 50% 8 MEQ in D5W 5% 1,000 ML IV SCH (12:00)
[2017-07-26] MEDS: GABAPENTIN 300 MG CAP PO SCH ×2 (12:53→22:09)
[2017-07-26 16:52] VITALS: BP 108/68
[2017-07-26 21:52] VITALS: BP 117/79
[2017-07-27] MEDS: SODIUM CHLORIDE 0.9% 1,000 ML IV SCH ×2 (03:30→18:01)
[2017-07-27 04:45] VITALS: BP 136/81
[2017-07-27] MEDS: HYDROcodone-ACET 10/325MG TAB PO PRN ×4 (07:50→18:42)
[2017-07-27 08:00] VITALS: BP 142/87
[2017-07-27] MEDS: LORazepam 2MG/ML-1ML VIAL IV PRN ×2 (08:23→16:33)
[2017-07-27 09:02] LABS: BUN/Creatinine Ratio 20.2; Calcium 8.6 mg/dL (8.5-10.1); Potassium 4.2 mmol/L (3.5-5.1)
[2017-07-27] MEDS: GABAPENTIN 300 MG CAP PO SCH ×2 (10:22→21:34)
[2017-07-27] MEDS: cloNIDine HCL 0.1 MG TAB PO SCH ×2 (10:23→21:33)
[2017-07-27] MEDS: PANTOPRAZOLE 40 MG TAB PO SCH (10:23)
[2017-07-27] MEDS: SALINE 0.65 % NASAL SPRAY 45ML BOTTLE EACHNOSTRI SCH ×2 (10:23→21:33)
[2017-07-27] MEDS: THIAMINE HCL 100 MG TAB PO SCH (10:23)
[2017-07-27] MEDS: ASPirin 81 mg TAB PO SCH (10:23)
[2017-07-27] MEDS: chlordiazePOXIDE HCL 25 MG CAP PO PRN ×2 (10:46→10:47)
[2017-07-27] MEDS: MULTIPLE VITAMIN 10 ML, FOLIC ACID 1 MG, MAGNESIUM SULF SDV 50% 8 MEQ in D5W 5% 1,000 ML IV SCH (12:00)
[2017-07-27 12:22] VITALS: BP 132/100
[2017-07-27 13:55] LABS: Amylase 84 U/L (25-115); Lipase 287 U/L (73-393)
[2017-07-27 16:39] VITALS: BP 149/100
[2017-07-27 22:00] VITALS: BP 131/67
[2017-07-28] MEDS: chlordiazePOXIDE HCL 25 MG CAP PO PRN (03:50)
[2017-07-28] MEDS: HYDROcodone-ACET 10/325MG TAB PO PRN (03:50)
[2017-07-28] MEDS: LORazepam 2MG/ML-1ML VIAL IV PRN (05:08)
[2017-07-28 05:17] VITALS: BP 167/99
[2017-07-28 05:18] VITALS: BP 142/94
[2017-07-28] MEDS: SODIUM CHLORIDE 0.9% 1,000 ML IV SCH ×2 (06:02→10:34)
[2017-07-28 09:00] VITALS: BP 149/91
[2017-07-28] MEDS: cloNIDine HCL 0.1 MG TAB PO SCH (09:03)
[2017-07-28] MEDS: THIAMINE HCL 100 MG TAB PO SCH (09:03)
[2017-07-28] MEDS: PANTOPRAZOLE 40 MG TAB PO SCH (09:04)
[2017-07-28] MEDS: GABAPENTIN 300 MG CAP PO SCH (09:05)
[2017-07-28] MEDS: ASPirin 81 mg TAB PO SCH (09:05)
[2017-07-28] MEDS: SALINE 0.65 % NASAL SPRAY 45ML BOTTLE EACHNOSTRI SCH (09:06)
[2017-07-28 10:51] LABS: Folate (Folic Acid) > 24.00 ng/mL (5.38-24)
[2017-07-28] MEDS: MULTIPLE VITAMIN 10 ML, FOLIC ACID 1 MG, MAGNESIUM SULF SDV 50% 8 MEQ in D5W 5% 1,000 ML IV SCH (11:47)
[2017-07-28 13:00] VITALS: BP 122/99
[2017-07-28 17:00] VITALS: BP 117/74
== END 2017-07-28 17:31 | disposition home or self-care (01) | DRG 199 ==
LOC: EDBD 14:57 → ER 14:57 → TELE 14:58 → ICU WEST 07-23 08:52 → TELE-EAST 07-23 21:20
PROVIDERS: ADMIT Internal Medicine; ATTEND Internal Medicine
PROC: 02HV33Z Insertion of Infusion Device into Superior Vena Cava, Percutaneous Approach (ICD-10-PCS; principal; 2017-07-22)
DX: I11.9 Hypertensive heart disease without heart failure (principal); N17.0 Acute kidney failure with tubular necrosis; G93.41 Metabolic encephalopathy; K29.20 Alcoholic gastritis without bleeding; K70.30 Alcoholic cirrhosis of liver without ascites; K70.40 Alcoholic hepatic failure without coma; I50.9 Heart failure, unspecified; E87.6 Hypokalemia; E44.1 Mild protein-calorie malnutrition; I16.0 Hypertensive urgency; Z68.37 Body mass index [BMI] 37.0-37.9, adult; B19.20 Unspecified viral hepatitis C without hepatic coma; E66.9 Obesity, unspecified; E78.5 Hyperlipidemia, unspecified; F10.10 Alcohol abuse, uncomplicated; F17.210 Nicotine dependence, cigarettes, uncomplicated; K21.9 Gastro-esophageal reflux disease without esophagitis; F41.9 Anxiety disorder, unspecified; E11.40 Type 2 diabetes mellitus with diabetic neuropathy, unspecified; I25.10 Atherosclerotic heart disease of native coronary artery without angina pectoris; J44.9 Chronic obstructive pulmonary disease, unspecified; Z86.73 Personal history of transient ischemic attack (TIA), and cerebral infarction without residual deficits; Z79.82 Long term (current) use of aspirin; Z79.899 Other long term (current) drug therapy; Z82.49 Family history of ischemic heart disease and other diseases of the circulatory system; Z83.3 Family history of diabetes mellitus; Z91.19 Patient's noncompliance with other medical treatment and regimen; Z79.84 Long term (current) use of oral hypoglycemic drugs; Z90.49 Acquired absence of other specified parts of digestive tract; I25.2 Old myocardial infarction
CPT/HCPCS: 36415; 36556; 70450; 71045; 74177; 80048; 80053; 80074; 80307; 80320; 81001; 82140; 82150; 82607; 82746; 82962; 83036; 83605; 83690; 83735; 84484; 85025; 85610; 85730; 87040; 87081; 87804; 93005; 96361; 96365; 96375; C9113; J1815; J2405; J2543

== ENCOUNTER 2017-11-27 11:03 | Emergency (ER) | payer MEDICAID ==
[~2017-11-27] VITALS: Ht 172.7 cm; Wt 108.9 kg
[~2017-11-27 11:03] MED LIST changes: -HYDR-4683 PO; +HYDR-531 PO
[2017-11-27] MEDS ORDERED: SODIUM CHLORIDE 0.9% 1,000 ML IV ONE ×2 (11:17)
[2017-11-27 11:54] LABS: Urine Bacteria NONE SEEN /hpf (None Seen); Urine Blood Negative /uL (Negative); Urine Mucus FEW (None Seen); Urine Specific Gravity 1.028 (1.001-1.035); Urine WBC 2 /hpf (0 - 3)
[2017-11-27 12:25] LABS: Amphetamine Screen, Urine NEGATIVE (NEGATIVE); Barbiturate Scree,Urine NEGATIVE (NEGATIVE); Benzodiazephine Screen, Urine NEGATIVE (NEGATIVE); Cannabinoid Screen, Urine NEGATIVE (NEGATIVE); Cocaine Screen, Urine NEGATIVE (NEGATIVE); Opiate Scree,Urine POSITIVE (NEGATIVE); Phencyclidine Screen, Urine NEGATIVE (NEGATIVE)
[2017-11-27] MEDS ORDERED: cloNIDine HCL 0.1 MG TAB PO ONE (15:00)
[2017-11-27 16:14] LABS: Basophils # (auto) 0 uL; Basophils % (auto) 0.5 % (0.0-2.0); Eosinophils # (auto) 0 uL; Hematocrit 46.6 % (41.0-53.0); Lymphocytes # (auto) 1.4 uL; Lymphocytes % (auto) 18.2 % (10.0-50.0); Mean Corpuscular Hgb Conc. 34.4 g/dL (32.0-36.0); Mean Corpuscular Volume 87.2 fL (80.0-100.0); Monocytes # (auto) 0.7 uL; Monocytes % (auto) 8.6 % (0.0-12.0); Neutrophils # (auto) 5.7 uL; Neutrophils % (auto) 72.7 % (37.0-80.0); Nucleated Red Blood Cells % 0.1 %; Platelet Count (auto) 226 10^3/uL (140-450); Red Blood Cells 5.34 10^6/uL (4.5-5.90); White Blood Cell 7.8 10^3/uL (4.4-10.8)
[2017-11-27] MEDS ORDERED: HYDROcodone-ACET 10/325MG TAB PO ONE (16:30)
[2017-11-27 16:36] LABS: Albumin 3.4 g/dL (3.4-5.0); BUN/Creatinine Ratio 8.9; Potassium 4.1 mmol/L (3.5-5.1)
[2017-11-27 16:39] LABS: Bilirubin, Total 1.5 mg/dL (0.2-1.0); Total Protein 10.3 g/dL (6.4-8.2)
[2017-11-27 17:27] VITALS: BP 132/92
== END 2017-11-27 18:14 | disposition home or self-care (01) ==
LOC: EDBD 11:03 → ER 11:07
DX: R56.9 Unspecified convulsions (principal); R42 Dizziness and giddiness; I11.0 Hypertensive heart disease with heart failure; I50.9 Heart failure, unspecified; K21.9 Gastro-esophageal reflux disease without esophagitis; I25.2 Old myocardial infarction; E78.5 Hyperlipidemia, unspecified; F17.210 Nicotine dependence, cigarettes, uncomplicated; I25.10 Atherosclerotic heart disease of native coronary artery without angina pectoris; Z86.73 Personal history of transient ischemic attack (TIA), and cerebral infarction without residual deficits; Z90.49 Acquired absence of other specified parts of digestive tract
CPT/HCPCS: 36415; 70450; 80053; 80185; 80307; 81001; 84484; 85025; 96360; 99285; J7030; 93005

== ENCOUNTER 2018-11-21 01:55 | Inpatient (IN) | payer MEDICAID | END 2018-11-27 16:59 | disposition home health service (06) | LOC: ER 01:55 → TELE 14:28 → TELE-EAST 20:32 | PROC: 0VTB0ZZ Resection of Left Testis, Open Approach (ICD-10-PCS; principal; 2018-11-23 20:05) | DX: I10 Essential (primary) hypertension (principal); I38 Endocarditis, valve unspecified; E44.0 Moderate protein-calorie malnutrition; N45.4 Abscess of epididymis or testis; I48.92 Unspecified atrial flutter; E11.9 Type 2 diabetes mellitus without complications; B19.20 Unspecified viral hepatitis C without hepatic coma; D64.9 Anemia, unspecified; E66.9 Obesity, unspecified; Z79.84 Long term (current) use of oral hypoglycemic drugs; Z86.73 Personal history of transient ischemic attack (TIA), and cerebral infarction without residual deficits; Z82.49 Family history of ischemic heart disease and other diseases of the circulatory system; G89.29 Other chronic pain; M54.9 Dorsalgia, unspecified ==

== ENCOUNTER 2018-12-04 11:54 | Emergency (ER) | payer MEDICAID ==
[~2018-12-04] VITALS: Ht 170.2 cm; Wt 108.9 kg
[~2018-12-04 11:54] MED LIST changes: +AML5T PO; -ASPI81CH43 PO; -LISI-646 PO; +MET50T PO
[2018-12-04 12:12] VITALS: BP 138/68
== END 2018-12-04 13:02 | disposition home or self-care (01) ==
LOC: ER 11:58
DX: S31.114D Laceration without foreign body of abdominal wall, left lower quadrant without penetration into peritoneal cavity, subsequent encounter (principal); I11.0 Hypertensive heart disease with heart failure; I50.9 Heart failure, unspecified; K21.9 Gastro-esophageal reflux disease without esophagitis; E78.5 Hyperlipidemia, unspecified; F12.90 Cannabis use, unspecified, uncomplicated; I25.2 Old myocardial infarction; I25.10 Atherosclerotic heart disease of native coronary artery without angina pectoris; J44.9 Chronic obstructive pulmonary disease, unspecified; E11.9 Type 2 diabetes mellitus without complications; Z90.49 Acquired absence of other specified parts of digestive tract; Z79.899 Other long term (current) drug therapy; Z79.82 Long term (current) use of aspirin; Z86.73 Personal history of transient ischemic attack (TIA), and cerebral infarction without residual deficits; X58.XXXD Exposure to other specified factors, subsequent encounter

== ENCOUNTER 2019-09-23 01:56 | Inpatient (IN) | payer MEDICAID ==
[~2019-09-23] VITALS: Ht 170.2 cm; Wt 109.7 kg
[~2019-09-23 01:56] MED LIST changes: +ASPI-394 PO; +BISA-4 PO
[2019-09-23 02:58] LABS: Basophils # (auto) 0 10 ^3/uL (0-0.2); Basophils % (auto) 0.4 % (0.0-2.0); Eosinophils # (auto) 0 10 ^3/uL (0-0.8); Eosinophils % (auto) 0.1 % (0.0-7.0); Hematocrit 47.9 % (41.0-53.0); Hemoglobin 16.4 g/dL (13.5-17.5); Lymphocytes # (auto) 1.5 10 ^3/uL (0.4-5.4); Mean Corpuscular Hemoglobin 27.8 pg (28.0-32.0); Mean Corpuscular Hgb Conc. 34.2 g/dL (32.0-36.0); Mean Corpuscular Volume 81.2 fL (80.0-100.0); Monocytes # (auto) 0.2 10 ^3/uL (0-1.3); Monocytes % (auto) 2.8 % (0.0-12.0); Neutrophils # (auto) 6.9 10 ^3/uL (1.6-8.6); Neutrophils % (auto) 79.7 % (37.0-80.0); Nucleated Red Blood Cells % 0.4 %; Platelet Count (auto) 246 10^3/uL (140-450); White Blood Cell 8.6 10^3/uL (4.4-10.8)
[2019-09-23 03:08] LABS: Alanine Aminotransferase 253 U/L (16-61); Albumin 3.6 g/dL (3.4-5.0); Amylase 68 U/L (25-115); Anion Gap 10 (5-15); Aspartate Aminotransferase 241 U/L (15-37); BUN/Creatinine Ratio 14.4; Blood Alcohol < 3.0 mg/dL (0-5); Blood Urea Nitrogen 14 mg/dL (7-18); Carbon Dioxide 21 mmol/L (21-32); Chloride 105 mmol/L (98-107); GFR African American 102 mL/min; GFR Non-African American 84 mL/min; Glucose 187 mg/dL (74-106); Lipase 122 U/L (73-393); Potassium 3.8 mmol/L (3.5-5.1); Sodium 136 mmol/L (136-145)
[2019-09-23 03:11] LABS: Alkaline Phosphatase 152 U/L (45-117); Bilirubin, Total 0.7 mg/dL (0.2-1.0); Total Protein 10.9 g/dL (6.4-8.2)
[2019-09-23] MEDS ORDERED: SODIUM CHLORIDE 0.9% 1,000 ML IV ONE ×2 (06:54)
[2019-09-23] MEDS ORDERED: ONDANSETRON HCL 4 MG/2 ML VIAL IV ONE ×2 (07:00→09:15)
[2019-09-23] MEDS ORDERED: MORPHINE SULF INJ 2 MG/ML SYRINGE 1ML IV ONE ×2 (07:00→09:15)
[2019-09-23] MEDS ORDERED: FAMOTIDINE (10MG/ML) 2ML VL IV SCH (09:45)
[2019-09-23] MEDS ORDERED: chlordiazePOXIDE HCL 25 MG CAP PO PRN (09:45)
[2019-09-23] MEDS ORDERED: LORazepam 2MG/ML-1ML VIAL IV PRN (09:45)
[2019-09-23] MEDS ORDERED: MORPHINE SULF INJ 2 MG/ML SYRINGE 1ML IV PRN (09:45)
[2019-09-23] MEDS ORDERED: DEXTROSE (50%) 50ML SYRG IV PRN (09:45)
[2019-09-23] MEDS ORDERED: LABETALOL HCL 5 MG/ML 4ML SYRINGE IV ONE (09:45)
[2019-09-23] MEDS ORDERED: THIAMINE 100mg/ml INJ (200mg/2ml VIAL) IV ONE (09:45)
[2019-09-23] MEDS ORDERED: NITROGLYCERIN 0.4 MG SL TAB SL PRN (09:45)
[2019-09-23] MEDS ORDERED: PANTOPRAZOLE 40 MG TAB PO SCH (10:00)
--- NOTE | 2019-09-23 10:20 | NUR ---
Telemetry admit from ER LINDEN DIETZ admitted to Telemetry unit after SBAR received. Patient oriented to Sara Cantor RN primary RN, unit, room, bed, and unit policies regarding patient care and visiting hours. Patient now on continuous telemetry monitoring, tele box # 85 and telemetry reading on arrival to unit is SR 97. Patient placed on bedside oxygen, weighed by bedscale and encouraged to call if they need something. All questions and concerns addressed, patient verbalized understanding. Note:
[2019-09-23 10:31] LABS: Urine Amorphous Crystal FEW /hpf (None Seen); Urine Bacteria NONE SEEN /hpf (None Seen); Urine Blood 1+ /uL (Negative); Urine Hyaline Cast FEW /lpf (0 - 2); Urine Mucus FEW (None Seen); Urine WBC 2 /hpf (0 - 3)
--- NOTE | 2019-09-23 10:53 | NUR ---
Dr. Nobles in to see patient for GI consult.
[2019-09-23 10:54] VITALS: BP 195/93
[2019-09-23 11:07] LABS: Amphetamine Screen, Urine NEGATIVE (NEGATIVE); Barbiturate Scree,Urine NEGATIVE (NEGATIVE); Benzodiazephine Screen, Urine NEGATIVE (NEGATIVE); Cannabinoid Screen, Urine NEGATIVE (NEGATIVE); Cocaine Screen, Urine NEGATIVE (NEGATIVE); Phencyclidine Screen, Urine NEGATIVE (NEGATIVE)
[2019-09-23 11:16] LABS: Opiate Scree,Urine POSITIVE (NEGATIVE)
[2019-09-23 11:21] VITALS: BP 176/101
[2019-09-23 11:52] LABS: INR 1.05 (0.9-1.15)
[2019-09-23] MEDS: ACCU-CHEK COMFORT CURVE STRIP VI SCH ×2 (12:00→18:21)
[2019-09-23] MEDS: InsuLIN REG 1unit/0.01ml Soln (100units/ml) SC SCH ×2 (12:00→18:21)
[2019-09-23 13:00] VITALS: BP 157/98
[2019-09-23] MEDS: MORPHINE SULF INJ 2 MG/ML SYRINGE 1ML IV PRN ×2 (13:37→23:03)
[2019-09-23] MEDS: chlordiazePOXIDE HCL 25 MG CAP PO SCH ×2 (13:38→18:24)
[2019-09-23] MEDS: PROMETHAZINE HCL 25 MG/ML 1ML IV PRN ×2 (13:38→23:03)
[2019-09-23] MEDS: cloNIDine HCL 0.1 MG TAB PO SCH ×2 (13:38→23:03)
[2019-09-23] MEDS: METOPROLOL TARTRATE 50 MG TAB PO SCH ×2 (13:39→23:03)
[2019-09-23] MEDS: SODIUM CHLORIDE 0.9% 1,000 ML IV SCH ×2 (13:39→19:41)
[2019-09-23] MEDS: amLODIPine BESYLATE 5 MG TAB PO SCH (13:39)
--- NOTE | 2019-09-23 13:40 | NUR ---
Patient C/O abdominal pain 12/16. Morphine and phenergan IV given. Will continue to monitor.
[2019-09-23] MEDS: metroNIDAZOLE 500MG/100ML 100 ML IV SCH ×2 (15:30→23:04)
[2019-09-23 16:51] VITALS: BP 161/92
--- NOTE | 2019-09-23 18:29 | NUR ---
Per Pharmacy, thiamine IV is on backorder and is not currently available.
[2019-09-23] MEDS: LABETALOL HCL 5 MG/ML ML 20ML VIAL IV PRN (18:42)
--- NOTE | 2019-09-23 19:30 | NUR ---
Opening Shift Note Assumed care of patient. Patient is sleeping comfortably. No S/S of distress/SOB or pain. Will continue to monitor for changes Q1hr and PRN. Bed locked in lowest position and bed rails up x2. Call light within reach.
--- NOTE | 2019-09-23 20:30 | NUR ---
Patient in bathroom taking shower. Patient educated to call nurse next time so that we may cover IV and receive order from to shower. Educated patient on tele monitor. Patient verbalized understanding. Will continue to monitor for changes.
[2019-09-23 22:00] VITALS: BP 164/88
[2019-09-23] MEDS: PANTOPRAZOLE 40 MG TAB PO SCH (23:04)
[2019-09-24] VITALS (8 sets, daily range): BP systolic 97–164; BP diastolic 66–96
[2019-09-24] MEDS: ACCU-CHEK COMFORT CURVE STRIP VI SCH ×4 (01:48→17:37)
[2019-09-24] MEDS: chlordiazePOXIDE HCL 25 MG CAP PO SCH ×4 (01:48→17:51)
[2019-09-24] MEDS: SODIUM CHLORIDE 0.9% 1,000 ML IV SCH ×2 (05:00→13:43)
[2019-09-24] MEDS: cloNIDine HCL 0.1 MG TAB PO SCH ×2 (05:57→13:43)
[2019-09-24] MEDS: metroNIDAZOLE 500MG/100ML 100 ML IV SCH ×3 (05:58→22:54)
[2019-09-24] MEDS: InsuLIN REG 1unit/0.01ml Soln (100units/ml) SC SCH ×4 (06:00→17:52)
--- NOTE | 2019-09-24 07:41 | NUR ---
Opening Note Assumed pt care from NOC RN. Pt is a/ox4 with no s/s of distress or SOB. Pt is currently laying in bed with mild c/o nausea and generalized abdominal pain, discussed next available medications with pt; pt verbalized understanding. Pt has been NPO since 0000 for scheduled EGD; pt aware. Discussed POC with pt; pt verbalized understanding. Safety measures maintained with call light within reach, bed in lowest position and side rails up. Will continue to monitor.
[2019-09-24] MEDS: PROMETHAZINE HCL 25 MG/ML 1ML IV PRN ×3 (08:05→22:55)
[2019-09-24 08:12] LABS: Calcium 8.7 mg/dL (8.5-10.1); Potassium 4.1 mmol/L (3.5-5.1)
[2019-09-24 08:15] LABS: BUN/Creatinine Ratio 15.9; Bilirubin, Total 1.5 mg/dL (0.2-1.0); Total Protein 9.1 g/dL (6.4-8.2)
[2019-09-24] MEDS ORDERED: SODIUM CHLORIDE LOCK 10 ML ONE (08:45)
[2019-09-24] MEDS ORDERED: LIDOCAINE VISCOUS 2% 15ML UD ONE (08:45)
[2019-09-24] MEDS ORDERED: MIDAZOLAM HCL 5 MG/ML-1ML VIAL ONE (08:46)
[2019-09-24] MEDS ORDERED: diphenhdrAMINE HCL 50 MG/1 ML VL ONE (08:46)
[2019-09-24] MEDS ORDERED: fentaNYL CITRATE 100 MCG/2 ML VL ONE (08:46)
[2019-09-24] MEDS: MORPHINE SULF INJ 2 MG/ML SYRINGE 1ML IV PRN ×3 (09:19→22:55)
[2019-09-24] MEDS: THIAMINE 100mg/ml INJ (200mg/2ml VIAL) IV SCH (09:20)
[2019-09-24] MEDS: LABETALOL HCL 5 MG/ML ML 20ML VIAL IV PRN (09:20)
[2019-09-24] MEDS: amLODIPine BESYLATE 5 MG TAB PO SCH (09:21)
[2019-09-24] MEDS: METOPROLOL TARTRATE 50 MG TAB PO SCH ×2 (09:21→22:55)
[2019-09-24] MEDS: PANTOPRAZOLE 40 MG TAB PO SCH (09:21)
--- NOTE | 2019-09-24 10:21 | NUR ---
Pt Taken to OR Pt taken to OR via gurney for scheduled procedure. Pt is a/ox4 with no s/s of distress or SOB. Report given to Ana in OR. All questions were answered.
--- NOTE | 2019-09-24 11:30 | NUR ---
Pt Back on Unit Pt back on unit from OR. Pt is a/ox4 with no s/s of distress or SOB. Pt placed on 2L NC. Safety measures maintained with call light within reach, bed in lowest position and side rails up. Bed alarm also placed for safety. Will continue to monitor.
--- NOTE | 2019-09-24 12:47 | NUR ---
Elevated BP Reported BP of 163/95 reported with a HR of 76. Assessed pt, currently laying in bed with no complaints at this time. Assessed pt, current BP is 156/87 with a HR of 79. Will continue to monitor.
--- NOTE | 2019-09-24 18:45 | NUR ---
Pt Taking Shower Pt took it upon himself to take a shower without inquiring about protecting his midline or if he could be of tele monitoring. Pt states "I am raising my arm so it doesn't get wet...its good". Provided pt with education regarding both the midline as well as the tele monitor. Pt still insists on continuing to take his shower. Will continue to monitor.
--- NOTE | 2019-09-24 19:30 | NUR ---
Opening Shift Note Assumed care of patient. Patient is awake and alert. No S/S of distress/SOB or pain. Will continue to monitor for changes Q1hr and PRN. Bed locked in lowest position and bed rails up x2. Call light within reach.
[2019-09-24] MEDS: hydrALAZINE HCL 25 MG TAB PO SCH (22:54)
[2019-09-25] MEDS: ACCU-CHEK COMFORT CURVE STRIP VI SCH ×3 (01:35→11:28)
[2019-09-25] MEDS: chlordiazePOXIDE HCL 25 MG CAP PO SCH ×3 (01:35→11:36)
[2019-09-25 05:03] VITALS: BP 151/98
[2019-09-25 05:13] LABS: Basophils # (auto) 0.1 10 ^3/uL (0-0.2); Basophils % (auto) 1.1 % (0.0-2.0); Eosinophils # (auto) 0 10 ^3/uL (0-0.8); Eosinophils % (auto) 0.5 % (0.0-7.0); Hematocrit 42.2 % (41.0-53.0); Hemoglobin 14.3 g/dL (13.5-17.5); Lymphocytes # (auto) 2.5 10 ^3/uL (0.4-5.4); Mean Corpuscular Hemoglobin 28.1 pg (28.0-32.0); Mean Corpuscular Hgb Conc. 33.9 g/dL (32.0-36.0); Mean Corpuscular Volume 82.8 fL (80.0-100.0); Monocytes # (auto) 1.2 10 ^3/uL (0-1.3); Monocytes % (auto) 14.1 % (0.0-12.0); Neutrophils # (auto) 4.6 10 ^3/uL (1.6-8.6); Neutrophils % (auto) 54.3 % (37.0-80.0); Nucleated Red Blood Cells % 0.1 %; Platelet Count (auto) 231 10^3/uL (140-450); Red Blood Cells 5.09 10^6/uL (4.5-5.90); Red Cell Distribution Width 17.4 % (11.8-14.3); White Blood Cell 8.5 10^3/uL (4.4-10.8)
[2019-09-25 05:30] LABS: Albumin 3.1 g/dL (3.4-5.0); Calcium 8.9 mg/dL (8.5-10.1); Potassium 3.7 mmol/L (3.5-5.1)
[2019-09-25 05:34] LABS: BUN/Creatinine Ratio 16.7; Bilirubin, Total 1.2 mg/dL (0.2-1.0); Total Protein 9.3 g/dL (6.4-8.2)
[2019-09-25] MEDS: metroNIDAZOLE 500MG/100ML 100 ML IV SCH ×2 (05:39→13:43)
[2019-09-25] MEDS: PROMETHAZINE HCL 25 MG/ML 1ML IV PRN ×2 (05:39→09:44)
[2019-09-25] MEDS: MORPHINE SULF INJ 2 MG/ML SYRINGE 1ML IV PRN ×2 (05:39→14:55)
[2019-09-25] MEDS: hydrALAZINE HCL 25 MG TAB PO SCH ×2 (05:40→13:43)
[2019-09-25] MEDS: InsuLIN REG 1unit/0.01ml Soln (100units/ml) SC SCH ×3 (05:40→11:28)
--- NOTE | 2019-09-25 07:49 | NUR ---
Opening Note Assumed pt care from NOC RN. Pt is a/ox4 with no s/s of distress or SOB. Pt is currently laying in bed with no complaint at this time. Pt is currently NPO for abdominal US this morning. Discussed POC with pt; pt verbalized understanding. Safety measures maintained with call light within reach, bed in lowest position and side rails up. Will continue to monitor.
[2019-09-25 09:03] VITALS: BP 114/77
--- NOTE | 2019-09-25 09:13 | NUR ---
US at Bedside
[2019-09-25] MEDS: THIAMINE 100mg/ml INJ (200mg/2ml VIAL) IV SCH (09:43)
[2019-09-25] MEDS: METOPROLOL TARTRATE 50 MG TAB PO SCH (09:43)
[2019-09-25] MEDS: amLODIPine BESYLATE 5 MG TAB PO SCH (09:44)
[2019-09-25] MEDS ORDERED: PANTOPRAZOLE 40 MG TAB PO SCH (10:00)
--- NOTE | 2019-09-25 10:09 | NUR ---
Pt Shower Pt instant that he is to take a shower. No current MD orders for pt able to shower and pt is current aware of this. Pt adamant that he is to take a shower. Pt is currently off tele monitoring. Will continue to monitor and reinforce education and purpose of monitoring.
--- NOTE | 2019-09-25 12:46 | NUR ---
Dr Pino at Bedside at bedside. plans to d/c pt home later this evening. requests that pt f/u with PCP. Will implement orders and arrange d/c
[2019-09-25 13:00] VITALS: BP 170/90
--- NOTE | 2019-09-25 13:00 | NUR ---
D/C Planning Attempted to reach pt's sister, Hannah [phone], to inform about pt's plans for d/c. Unable to reach anyone. Will attempt later. 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 Will notify pt and continue with d/c plan.
[2019-09-25 13:30] VITALS: BP 163/99
[2019-09-25] MEDS: LABETALOL HCL 5 MG/ML ML 20ML VIAL IV PRN (13:44)
--- NOTE | 2019-09-25 15:04 | NUR ---
Elevated BP Elevated BP at 167/92 with a HR of 84. PRN labetalol already administered. Pt states he has pain 01/16. Will provide pain medication and reassess. Will continue to monitor. Addendum: 09/25/19 at 1558 by MEHNAZ IBARRA RN RN Reassessed BP, currently 158/97 with a HR of 86. Will continue to monitor.
[2019-09-25] MEDS ORDERED: LOSA-69 PO (15:39)
[2019-09-25] MEDS ORDERED: PANT40T PO (15:39)
[2019-09-25] MEDS ORDERED: AMLO10TA13 PO (15:40)
[2019-09-25] MEDS ORDERED: MET50T PO (15:41)
[2019-09-25] MEDS ORDERED: HCTZ25T GT (15:41)
[2019-09-25 16:02] VITALS: BP 158/97
[2019-09-25 16:03] VITALS: BP 158/97
--- NOTE | 2019-09-25 16:47 | NUR ---
Midline and Tele 85 Removed Midline to pt's R upper arm removed. Catheter was removed fully intact. Site is asymptomatic. Pressure was applied to site for 3 minutes with gauze and then wrapped in coban. Pt instructed to keep dressing on for 30 minutes; pt verbalized understanding. Tele 85 removed and sent back to ICU. Staff made aware. Box sent back via [employer] system.
--- NOTE | 2019-09-25 17:50 | NUR ---
Pt D/C'ed Off Unit Pt d/c'ed off unit via wheelchair. Pt is a/ox4 with no s/s of distress or SOB. Pt aware of all follow-up appointments, and newly prescribed medications. Pt has all belongings and education material. All questions were answered. Pt's Midline and tele box d/c'ed prior to d/c.
== END 2019-09-25 17:50 | disposition home or self-care (01) | DRG 241 ==
LOC: EDBD 01:56 → ER 01:59 → TELE 02:00 → TELE-WESTW 10:27
PROVIDERS: ADMIT Internal Medicine; ATTEND Internal Medicine Nephrology
PROC: 0DB68ZX Excision of Stomach, Via Natural or Artificial Opening Endoscopic, Diagnostic (ICD-10-PCS; principal; 2019-09-24 10:43)
DX: K29.70 Gastritis, unspecified, without bleeding (principal); N17.9 Acute kidney failure, unspecified; I50.9 Heart failure, unspecified; I11.0 Hypertensive heart disease with heart failure; D89.2 Hypergammaglobulinemia, unspecified; E11.65 Type 2 diabetes mellitus with hyperglycemia; I16.1 Hypertensive emergency; K76.0 Fatty (change of) liver, not elsewhere classified; R19.7 Diarrhea, unspecified; K21.9 Gastro-esophageal reflux disease without esophagitis; B19.20 Unspecified viral hepatitis C without hepatic coma; F12.90 Cannabis use, unspecified, uncomplicated; G89.29 Other chronic pain; F10.10 Alcohol abuse, uncomplicated; F17.210 Nicotine dependence, cigarettes, uncomplicated; E78.5 Hyperlipidemia, unspecified; I25.10 Atherosclerotic heart disease of native coronary artery without angina pectoris; Z86.73 Personal history of transient ischemic attack (TIA), and cerebral infarction without residual deficits; Z91.19 Patient's noncompliance with other medical treatment and regimen; I25.2 Old myocardial infarction; I48.0 Paroxysmal atrial fibrillation; J44.9 Chronic obstructive pulmonary disease, unspecified; Z82.49 Family history of ischemic heart disease and other diseases of the circulatory system; Z86.79 Personal history of other diseases of the circulatory system; Z83.3 Family history of diabetes mellitus
CPT/HCPCS: 36415; 43239; 71045; 74176; 76705; 80053; 80307; 80320; 81001; 82150; 82550; 82962; 83036; 83690; 83880; 84484; 85025; 85610; 86850; 86900; 86901; 93005; 96361; 96374; 96375; 96376; 99291; G0378; J1815; J2250; J2405; J3490

== ENCOUNTER 2020-01-08 07:26 | Emergency (ER) | payer MEDICAID ==
[~2020-01-08] VITALS: Ht 170.2 cm; Wt 113.4 kg
[~2020-01-08 07:26] MED LIST changes: -ASPI-394 PO; -CLON0.1T PO; +HCTZ25T GT; -HYDR-531 PO; -METO-462 PO
[2020-01-08] MEDS ORDERED: SODIUM CHLORIDE 0.9% 1,000 ML IV ONE (08:26)
[2020-01-08 08:28] LABS: Urine Bacteria NONE SEEN /hpf (None Seen); Urine Blood Negative /uL (Negative); Urine Mucus FEW (None Seen); Urine Specific Gravity 1.015 (1.001-1.035); Urine WBC 2 /hpf (0 - 3)
[2020-01-08] MEDS ORDERED: PROMETHAZINE HCL 25 MG/ML 1ML IV PRN (08:30)
[2020-01-08] MEDS ORDERED: HYDROmorphone HCL 2 MG/ML VL IV ONE (08:30)
[2020-01-08 09:25] LABS: Basophils # (auto) 0.1 10 ^3/uL (0-0.2); Eosinophils # (auto) 0.1 10 ^3/uL (0-0.8); Eosinophils % (auto) 0.8 % (0.0-7.0); Hematocrit 40.5 % (41.0-53.0); Hemoglobin 13.9 g/dL (13.5-17.5); Lymphocytes # (auto) 2.7 10 ^3/uL (0.4-5.4); Lymphocytes % (auto) 40.3 % (10.0-50.0); Mean Corpuscular Hemoglobin 27.9 pg (28.0-32.0); Mean Corpuscular Hgb Conc. 34.2 g/dL (32.0-36.0); Mean Corpuscular Volume 81.6 fL (80.0-100.0); Monocytes # (auto) 0.2 10 ^3/uL (0-1.3); Monocytes % (auto) 2.7 % (0.0-12.0); Neutrophils # (auto) 3.6 10 ^3/uL (1.6-8.6); Neutrophils % (auto) 55.2 % (37.0-80.0); Nucleated Red Blood Cells % 0.2 %; Platelet Count (auto) 238 10^3/uL (140-450); Red Blood Cells 4.97 10^6/uL (4.5-5.90); Red Cell Distribution Width 16.6 % (11.8-14.3); White Blood Cell 6.6 10^3/uL (4.4-10.8)
[2020-01-08 09:41] LABS: Albumin 3.3 g/dL (3.4-5.0); Amylase 77 U/L (25-115); Anion Gap 6 (5-15); Blood Urea Nitrogen 10 mg/dL (7-18); Calcium 8.8 mg/dL (8.5-10.1); Carbon Dioxide 24 mmol/L (21-32); Chloride 106 mmol/L (98-107); Glucose 165 mg/dL (74-106); Lipase 207 U/L (73-393); Potassium 3.6 mmol/L (3.5-5.1); Sodium 136 mmol/L (136-145)
[2020-01-08 09:43] LABS: Amphetamine Screen, Urine NEGATIVE (NEGATIVE); Barbiturate Scree,Urine NEGATIVE (NEGATIVE); Benzodiazephine Screen, Urine NEGATIVE (NEGATIVE); Cannabinoid Screen, Urine NEGATIVE (NEGATIVE); Cocaine Screen, Urine NEGATIVE (NEGATIVE); Opiate Scree,Urine NEGATIVE (NEGATIVE); Phencyclidine Screen, Urine NEGATIVE (NEGATIVE)
[2020-01-08 09:47] LABS: Alanine Aminotransferase 196 U/L (16-61); Alkaline Phosphatase 153 U/L (45-117); Aspartate Aminotransferase 183 U/L (15-37); BUN/Creatinine Ratio 10.2; Bilirubin, Total 0.5 mg/dL (0.2-1.0); GFR African American 101 mL/min; GFR Non-African American 83 mL/min
[2020-01-08] MEDS ORDERED: PROCHLORPERAZINE EDISYLATE 5 MG/ML 2ML VIAL IV ONE (12:00)
[2020-01-08 12:31] VITALS: BP 128/70
== END 2020-01-08 12:51 | disposition home or self-care (01) ==
LOC: ER 07:26 → EDBD 07:26 → ER 12:51
DX: K29.20 Alcoholic gastritis without bleeding (principal); E11.65 Type 2 diabetes mellitus with hyperglycemia; R74.8 Abnormal levels of other serum enzymes; K70.0 Alcoholic fatty liver; M41.9 Scoliosis, unspecified; E44.1 Mild protein-calorie malnutrition; K40.90 Unilateral inguinal hernia, without obstruction or gangrene, not specified as recurrent; I11.0 Hypertensive heart disease with heart failure; I50.9 Heart failure, unspecified; K21.9 Gastro-esophageal reflux disease without esophagitis; E78.5 Hyperlipidemia, unspecified; Z90.49 Acquired absence of other specified parts of digestive tract; Z68.39 Body mass index [BMI] 39.0-39.9, adult; Y90.9 Presence of alcohol in blood, level not specified
CPT/HCPCS: 36415; 71046; 74176; 80053; 80307; 81001; 82150; 83690; 83735; 84443; 84484; 85025; 93005; 96361; 96374; 96375; 99285; J0780; J1170; J2550; J7030

== ENCOUNTER 2020-03-14 14:09 | Inpatient (IN) | payer MEDICAID ==
[~2020-03-14] VITALS: Ht 170.2 cm; Wt 113.6 kg
[2020-03-14] MEDS ORDERED: ADENOSINE 6 MG/2 ML INJ IV ONE ×2 (14:15→14:45)
[2020-03-14] MEDS ORDERED: SODIUM CHLORIDE 0.9% 1,000 ML IV ONE ×2 (14:15→17:00)
[2020-03-14] MEDS ORDERED: dilTIAZem 125mg/125ml BAG KIT 125 ML IV ONE (14:34)
[2020-03-14] MEDS ORDERED: dilTIAZem 25 MG/5 ML VIAL IV ONE ×2 (14:34→14:45)
[2020-03-14] MEDS: dilTIAZem 125mg/125ml BAG KIT 100 ML IV SCH ×2 (14:40→20:56)
[2020-03-14] MEDS ORDERED: ONDANSETRON HCL 4 MG/2 ML VIAL IV ONE ×2 (14:45→16:15)
[2020-03-14] MEDS ORDERED: MORPHINE SULFATE 4 MG/ML SYR/VIAL IV ONE (14:45)
[2020-03-14 14:51] LABS: Basophils # (auto) 0.1 10 ^3/uL (0-0.2); Basophils % (auto) 0.6 % (0.0-2.0); Eosinophils # (auto) 0 10 ^3/uL (0-0.8); Eosinophils % (auto) 0.1 % (0.0-7.0); Hematocrit 37.9 % (41.0-53.0); Lymphocytes # (auto) 1.9 10 ^3/uL (0.4-5.4); Lymphocytes % (auto) 12.5 % (10.0-50.0); Mean Corpuscular Hemoglobin 27.3 pg (28.0-32.0); Mean Corpuscular Hgb Conc. 34.3 g/dL (32.0-36.0); Mean Corpuscular Volume 79.4 fL (80.0-100.0); Monocytes # (auto) 0.8 10 ^3/uL (0-1.3); Monocytes % (auto) 4.9 % (0.0-12.0); Neutrophils # (auto) 12.5 10 ^3/uL (1.6-8.6); Neutrophils % (auto) 81.9 % (37.0-80.0); Nucleated Red Blood Cells % 0.2 %; Platelet Count (auto) 330 10^3/uL (140-450); Red Blood Cells 4.77 10^6/uL (4.5-5.90); Red Cell Distribution Width 17.3 % (11.8-14.3); White Blood Cell 15.2 10^3/uL (4.4-10.8)
[2020-03-14] MEDS ORDERED: ASPirin 81 mg TAB PO ONE (15:00)
[2020-03-14 15:11] LABS: Albumin 3.9 g/dL (3.4-5.0); BUN/Creatinine Ratio 11.3; Calcium 10.9 mg/dL (8.5-10.1); Potassium 3.3 mmol/L (3.5-5.1)
[2020-03-14] MEDS ORDERED: ASPI-231 PO (15:12)
[2020-03-14] MEDS ORDERED: CLO01T PO (15:12)
[2020-03-14] MEDS ORDERED: RIV20T PO (15:12)
[2020-03-14 15:16] LABS: Bilirubin, Total 0.8 mg/dL (0.2-1.0); Total Protein 10.9 g/dL (6.4-8.2)
[2020-03-14] MEDS ORDERED: IOHEXOL 350 MG/ML 100ML IJ ONE (16:10)
[2020-03-14] MEDS ORDERED: ENOXAPARIN SOD 100 MG/1 ML SYRINGE SC ONE (16:15)
[2020-03-14] MEDS ORDERED: HYDROmorphone HCL 2 MG/ML VL IV ONE (16:15)
[2020-03-14 16:40] LABS: INR 1.06 (0.9-1.15); Partial Thromboplastin Time 22.8 sec (23.0-31.2)
[2020-03-14] MEDS ORDERED: MORPHINE SULF INJ 2 MG/ML SYRINGE 1ML IV PRN (16:45)
[2020-03-14] MEDS ORDERED: DEXTROSE (50%) 50ML SYRG IV PRN (16:45)
[2020-03-14] MEDS ORDERED: NITROGLYCERIN 0.4 MG SL TAB SL PRN (16:45)
[2020-03-14] MEDS ORDERED: FUROSEMIDE 20 MG/2 ML VIAL IV ONE (17:00)
[2020-03-14] MEDS ORDERED: ACETYLCYSTEINE ORAL for CIN 20%(200MG/ML) 4ML PO ONE (17:00)
[2020-03-14] MEDS: InsuLIN REG 1unit/0.01ml Soln (100units/ml) SC SCH ×2 (17:00→21:37)
[2020-03-14 17:19] LABS: Uric Acid 10.2 mg/dL (3.5-7.2)
[2020-03-14] MEDS: SOD CHL 0.45% 1,000 ML IV SCH (17:30)
[2020-03-14] MEDS: ACCU-CHEK COMFORT CURVE STRIP VI SCH ×2 (17:55→21:37)
[2020-03-14] MEDS: PROMETHAZINE HCL 25 MG/ML 1ML IV PRN (19:27)
[2020-03-14] MEDS: HYDROmorphone HCL 2 MG/ML VL IV PRN (20:35)
[2020-03-14] MEDS: LINEZOLID 600MG/300ML 300 ML IV SCH (21:28)
[2020-03-14] MEDS ORDERED: METOPROLOL TARTRATE 25 MG TAB PO SCH (22:00)
[2020-03-14 23:52] LABS: Urine Bacteria FEW /hpf (None Seen); Urine Blood Negative /uL (Negative); Urine Hyaline Cast MOD /lpf (0 - 2); Urine Mucus FEW (None Seen); Urine Specific Gravity 1.036 (1.001-1.035); Urine WBC 7 /hpf (0 - 3)
[2020-03-15] MEDS: HYDROmorphone HCL 2 MG/ML VL IV PRN ×4 (00:38→21:09)
[2020-03-15] MEDS: InsuLIN REG 1unit/0.01ml Soln (100units/ml) SC SCH ×2 (06:17→12:19)
[2020-03-15] MEDS: ACCU-CHEK COMFORT CURVE STRIP VI SCH ×2 (06:18→11:33)
[2020-03-15 06:47] LABS: Eosinophils # (auto) 0 10 ^3/uL (0-0.8); Nucleated Red Blood Cells % 0.1 %
[2020-03-15 06:48] LABS: Basophils # (auto) 0.1 10 ^3/uL (0-0.2); Basophils % (auto) 0.3 % (0.0-2.0); Eosinophils % (auto) 0.2 % (0.0-7.0); Lymphocytes # (auto) 5.3 10 ^3/uL (0.4-5.4); Lymphocytes % (auto) 35.3 % (10.0-50.0); Mean Corpuscular Hemoglobin 26.7 pg (28.0-32.0); Mean Corpuscular Hgb Conc. 33.4 g/dL (32.0-36.0); Mean Corpuscular Volume 80.1 fL (80.0-100.0); Monocytes # (auto) 1.2 10 ^3/uL (0-1.3); Neutrophils # (auto) 8.4 10 ^3/uL (1.6-8.6); Neutrophils % (auto) 56.2 % (37.0-80.0); Platelet Count (auto) 287 10^3/uL (140-450); Red Blood Cells 4.12 10^6/uL (4.5-5.90); Red Cell Distribution Width 17.3 % (11.8-14.3); White Blood Cell 14.9 10^3/uL (4.4-10.8)
[2020-03-15 07:24] LABS: Albumin 3.3 g/dL (3.4-5.0); Calcium 8.3 mg/dL (8.5-10.1); Potassium 3.5 mmol/L (3.5-5.1)
[2020-03-15 07:27] LABS: BUN/Creatinine Ratio 20.3; Bilirubin, Total 0.6 mg/dL (0.2-1.0); Total Protein 8.3 g/dL (6.4-8.2)
[2020-03-15] MEDS: SOD CHL 0.45% 1,000 ML IV SCH ×2 (07:49→12:21)
[2020-03-15] MEDS: OXYCODONE W/ ACETAMINOPHEN 5/325MG TABLET PO PRN ×2 (08:43→19:44)
[2020-03-15] MEDS: PROMETHAZINE HCL 25 MG/ML 1ML IV PRN (09:32)
[2020-03-15] MEDS: ASPirin 81 mg TAB PO SCH (09:42)
[2020-03-15] MEDS: CLOPIDOGREL BISULFATE 75 MG TAB PO SCH (09:42)
[2020-03-15] MEDS: METOPROLOL TARTRATE 25 MG TAB PO SCH ×2 (09:42→21:08)
[2020-03-15] MEDS: cefTRIAXone 1GM/50ML D5W 50 ML IV SCH (09:42)
[2020-03-15] MEDS ORDERED: ENOXAPARIN SOD 100 MG/1 ML SYRINGE SC SCH (10:00)
[2020-03-15] MEDS: LINEZOLID 600MG/300ML 300 ML IV SCH (10:23)
[2020-03-15 10:55] VITALS: BP 156/78
--- NOTE | 2020-03-15 10:55 | NUR ---
Patient transferred to unit in stable condition.
[2020-03-15 11:07] VITALS: BP 156/78
--- NOTE | 2020-03-15 11:32 | NUR ---
Checked blood sugar: 154 mg/dl - will cover per sliding scale. Patient stable at this time. Addendum: 03/15/20 at 1221 by SUSIE DEWITT RN RN Covered per sliding scale. Patient stable.
[2020-03-15 13:00] VITALS: BP 147/74
--- NOTE | 2020-03-15 13:50 | NUR ---
Patient stable with Dr. Macias at bedside.
[2020-03-15] MEDS ORDERED: HEPARIN DRIP/D5W 100UNITS/ML 250 ML IV SCH (14:15)
[2020-03-15] MEDS ORDERED: HEPARIN SODIUM (PORCINE) 5000 UNITS/ML 1ML VIAL IV ONE (14:15)
[2020-03-15 15:12] LABS: INR 1.03 (0.9-1.15); Partial Thromboplastin Time 26.8 sec (23.0-31.2)
[2020-03-15 15:15] LABS: Basophils # (auto) 0.1 10 ^3/uL (0-0.2); Eosinophils # (auto) 0.1 10 ^3/uL (0-0.8); Eosinophils % (auto) 0.6 % (0.0-7.0); Hemoglobin 11.1 g/dL (13.5-17.5); Monocytes # (auto) 0.7 10 ^3/uL (0-1.3); Nucleated Red Blood Cells % 0.2 %; White Blood Cell 10.2 10^3/uL (4.4-10.8)
[2020-03-15 15:17] LABS: Basophils % (auto) 1.4 % (0.0-2.0); Lymphocytes # (auto) 3.3 10 ^3/uL (0.4-5.4); Lymphocytes % (auto) 32.7 % (10.0-50.0); Mean Corpuscular Hemoglobin 27.2 pg (28.0-32.0); Mean Corpuscular Hgb Conc. 33.5 g/dL (32.0-36.0); Monocytes % (auto) 7.3 % (0.0-12.0); Neutrophils # (auto) 5.9 10 ^3/uL (1.6-8.6); Platelet Count (auto) 264 10^3/uL (140-450); Red Blood Cells 4.07 10^6/uL (4.5-5.90); Red Cell Distribution Width 17.5 % (11.8-14.3)
--- NOTE | 2020-03-15 15:17 | NUR ---
I faxed higher level of care order to [facility] and [facility].
--- NOTE | 2020-03-15 16:08 | NUR ---
I called [facility] and spoke with Danielle-provided her with contact information for Dr. Macias and the nurse's station. I let her know that I leave at 430pm but that there is an on-call caser in pageable through the hospital cracking still operator until 7pm. I faxed requested clinical information to [facility].
--- NOTE | 2020-03-15 16:12 | NUR ---
I called [facility] [employer] Floor [employer]inisher Cathryn Li [phone] to request authorization for higher level of care facility as well as for transportation. She will review the case and give me a call back.
[2020-03-15] MEDS ORDERED: ALBUTEROL SULF 2.5 MG/0.5ML(0.5%) NEB SOLN NEB ONE (16:15)
[2020-03-15] MEDS ORDERED: FUROSEMIDE 40 MG/4 ML VIAL IV ONE (16:15)
[2020-03-15] MEDS ORDERED: IPRATROPIUM BROM 0.5 MG/2.5ML INH SOL NEB ONE (16:15)
[2020-03-15] MEDS ORDERED: BUDESONIDE (INHALATION) 0.5 MG/2 ML NEB NEB ONE (16:15)
--- NOTE | 2020-03-15 16:15 | NUR ---
Patient resting in bed with 2D Echo in progress.
[2020-03-15] MEDS ORDERED: IPRATROPIUM BROM 0.5 MG/2.5ML INH SOL NEB PRN (16:30)
[2020-03-15] MEDS ORDERED: ALBUTEROL SULF 2.5 MG/0.5ML(0.5%) NEB SOLN NEB PRN (16:30)
--- NOTE | 2020-03-15 16:35 | NUR ---
Patient receiving breathing treatment at this time. Complained of 9/10 pain in lower extremities. Will medicate.
--- NOTE | 2020-03-15 16:50 | NUR ---
I spoke with patient, he is agreeable to be transferred to whichever facility has a bed available-I let him know that I had reached out to [facility] as well as [facility]. I called [facility] Transfer Center [phone] and spoke with Juan Pablo-I provided him with [facility] authorization number [id number] (provided to me by Cathryn Li [facility] Ingot Buggy Operator [phone])-I provided him with contact information for Cathryn as well. I called [facility] and spoke with Cam-placed them on will call with critical care transport pending transfer to higher level of care. [facility] authorization number from [facility] is [id number]. I spoke with patient's primary nurse and made her aware that [facility] is on will-call.
[2020-03-15 17:00] VITALS: BP 134/91
--- NOTE | 2020-03-15 17:03 | NUR ---
Patient medicated for 9/10 pain in bilateral lower extremities. Patient stable at this time.
[2020-03-15] MEDS: HEPARIN DRIP/D5W 100UNITS/ML 250 ML IV SCH (17:34)
--- NOTE | 2020-03-15 18:35 | NUR ---
Patient resting comfortably in bed with no distress noted. Patient stable since transfer to unit.
[2020-03-15 19:08] VITALS: BP 134/91
--- NOTE | 2020-03-15 20:00 | NUR ---
Opening Shift Note Assumed care of patient, awake and alert A/O x 4. No S/S of distress/SOB patient has 9/10 pain. Bed lowered and locked call light and bedside table within reach. Instructed on POC and to call for assist PRN, will continue to monitor for changes Q1hr and PRN.
--- NOTE | 2020-03-15 20:02 | NUR ---
Received call from MD cook who asked me to check the patient's medial malleolus and popliteal artery on right leg with Doppler and call with results.
--- NOTE | 2020-03-15 20:20 | NUR ---
Spoke to MD Macias and notified her that I checked medial malleolus and popliteal artery on right leg with Doppler and did not hear any pulses. Double checked with ZARA Hooper and she did not hear any pulses at all either. Per MD, she is going to speak to hospitalist and call back. Verified for as well that he has been checked for COVID x 2 and both have been negative.
--- NOTE | 2020-03-15 20:34 | NUR ---
Received another call from MD Macias. Patient will be transferred to [facility] under care of MD Caraballo so that patient may be consulted by MD Lew, a vascular surgeon.
--- NOTE | 2020-03-15 20:38 | NUR ---
Called and spoke to Danielle from [facility] transfer center. I gave her the authorization number from [facility] but she said she already had that. The are waiting on verification of insurance authorization before confirming bed placement. [facility] closes at 1700 and may not be available to authorize until AM. She also requested that we fill out transfer back agreement and send to her. Form was supposedly faxed this afternoon. Will check in chart. Awaiting callback regarding transfer.
--- NOTE | 2020-03-15 20:42 | NUR ---
Called and left a message for Arlene Saldivar CM per request and left a message. There is currently no on-call case filler to help with transfer.
--- NOTE | 2020-03-15 20:46 | NUR ---
Called and spoke to Paula and requested that transfer back agreement form be re-sent as it is not in chart or in fax machine.
[2020-03-15] MEDS: CLINDAMYCIN 600MG IV 50 ML IV SCH (21:07)
[2020-03-15 21:43] VITALS: BP 118/79
--- NOTE | 2020-03-15 21:56 | NUR ---
Paging hospitalist to request medication for pain, anxiety/sleep, and a nicotine patch. Patient states his pain is 9 out of 10 despite receiving Dilaudid 1 mg IV and 2 tabs of Percocet 5/325 mg. Patient reports pain in his right leg where he has a DVT and no palpable pulses. Patient is in process of being transferred to [facility]. Patient is very agitated, heart rate in 90s, and is upset that we are not doing anything for his leg. He also states he has not slept in nearly two days from the pain and requests sleeping pill. He also wants to go outside to smoke but I convinced him he should not be walking on right leg with DVT. Patient requests nicotine patch to curb cravings.
[2020-03-15 22:23] LABS: Amphetamine Screen, Urine NEGATIVE (NEGATIVE); Barbiturate Scree,Urine NEGATIVE (NEGATIVE); Benzodiazephine Screen, Urine NEGATIVE (NEGATIVE); Cannabinoid Screen, Urine NEGATIVE (NEGATIVE); Cocaine Screen, Urine NEGATIVE (NEGATIVE); Opiate Scree,Urine NEGATIVE (NEGATIVE); Phencyclidine Screen, Urine NEGATIVE (NEGATIVE)
[2020-03-15] MEDS ORDERED: KETOROLAC TROMETH 30 MG/ML 1ML VIAL IV ONE (23:15)
[2020-03-15] MEDS ORDERED: TEMAZEPAM 15 MG CAP PO ONE (23:15)
[2020-03-16 00:04] LABS: INR 1.05 (0.9-1.15); Partial Thromboplastin Time 37.5 sec (23.0-31.2)
--- NOTE | 2020-03-16 00:34 | NUR ---
APTT is 37.5. Will increase by 200 units/hr/2 mls/hr to 12 mls/hr.
[2020-03-16] MEDS: HYDROmorphone HCL 2 MG/ML VL IV PRN ×3 (02:34→10:25)
--- NOTE | 2020-03-16 04:23 | NUR ---
Spoke to Danielle from transfer center for [facility]. Awaiting authorization from [facility] and bed assignment. Transfer and Return Agreement faxed. Will have patient sign.
[2020-03-16] MEDS: OXYCODONE W/ ACETAMINOPHEN 5/325MG TABLET PO PRN (04:26)
[2020-03-16 04:52] VITALS: BP 97/74
[2020-03-16] MEDS: CLINDAMYCIN 600MG IV 50 ML IV SCH (05:54)
[2020-03-16 06:00] LABS: Basophils # (auto) 0.1 10 ^3/uL (0-0.2); Basophils % (auto) 1.3 % (0.0-2.0); Eosinophils # (auto) 0.1 10 ^3/uL (0-0.8); Eosinophils % (auto) 1.6 % (0.0-7.0); Hematocrit 33.9 % (41.0-53.0); Hemoglobin 11.5 g/dL (13.5-17.5); Lymphocytes # (auto) 3.8 10 ^3/uL (0.4-5.4); Lymphocytes % (auto) 41.4 % (10.0-50.0); Mean Corpuscular Hemoglobin 27.3 pg (28.0-32.0); Mean Corpuscular Hgb Conc. 33.9 g/dL (32.0-36.0); Mean Corpuscular Volume 80.6 fL (80.0-100.0); Monocytes # (auto) 0.9 10 ^3/uL (0-1.3); Monocytes % (auto) 9.8 % (0.0-12.0); Neutrophils # (auto) 4.3 10 ^3/uL (1.6-8.6); Neutrophils % (auto) 45.9 % (37.0-80.0); Nucleated Red Blood Cells % 0.2 %; Platelet Count (auto) 268 10^3/uL (140-450); Red Cell Distribution Width 16.8 % (11.8-14.3); White Blood Cell 9.2 10^3/uL (4.4-10.8)
[2020-03-16 06:24] LABS: INR 1.03 (0.9-1.15); Partial Thromboplastin Time 36.6 sec (23.0-31.2)
--- NOTE | 2020-03-16 06:32 | NUR ---
APTT is now 36.6. Per Heparin protocol, I will be increasing Heparin infusion by 200 units/hr to 1400 units/hr or 14 mls/hr
[2020-03-16 06:34] LABS: Albumin 3.2 g/dL (3.4-5.0); Calcium 8.1 mg/dL (8.5-10.1); Potassium 3.6 mmol/L (3.5-5.1)
[2020-03-16 06:37] LABS: BUN/Creatinine Ratio 23.4; Bilirubin, Total 0.8 mg/dL (0.2-1.0); Total Protein 8.8 g/dL (6.4-8.2)
[2020-03-16 08:30] VITALS: BP 108/67
[2020-03-16] MEDS: cefTRIAXone 1GM/50ML D5W 50 ML IV SCH (08:37)
[2020-03-16 08:38] VITALS: BP 108/67
--- NOTE | 2020-03-16 08:38 | NUR ---
Scheduled IV abx given per order. Patient eating breakfast with no distress noted. Patient stable.
[2020-03-16 08:45] VITALS: BP 108/67
[2020-03-16] MEDS: ASPirin 81 mg TAB PO SCH (09:14)
[2020-03-16] MEDS: CLOPIDOGREL BISULFATE 75 MG TAB PO SCH (09:14)
[2020-03-16] MEDS: METOPROLOL TARTRATE 25 MG TAB PO SCH (09:15)
--- NOTE | 2020-03-16 09:15 | NUR ---
Patient stable with Dr. Macias at bedside. Scheduled medications given per order. Patient stable.
[2020-03-16] MEDS ORDERED: chlordiazePOXIDE HCL 5 MG CAP PO PRN (09:30)
--- NOTE | 2020-03-16 09:34 | NUR ---
Transfer back agreement faxed to [facility].
--- NOTE | 2020-03-16 09:57 | NUR ---
I called [facility] [phone] twice and was left on hold for more than 10 minutes each time-will keep trying.
[2020-03-16] MEDS ORDERED: THIAMINE HCL 100 MG TAB PO SCH (10:00)
[2020-03-16] MEDS ORDERED: FOLIC ACID 1 MG TAB PO SCH (10:00)
--- NOTE | 2020-03-16 10:00 | NUR ---
I called [facility] Transfer Center and left message asking for a call back regarding bed availability. Transfer back agreement already faxed back to them-received confirmation that fax went through.
[2020-03-16] MEDS ORDERED: NICOTINE 21MG/24 HR TOPICAL PATCH TD ONE (10:15)
--- NOTE | 2020-03-16 10:25 | NUR ---
Ordered medications given. Patient medicated for 7/10 pain in right lower extremity. Patient stable at this time.
--- NOTE | 2020-03-16 10:27 | NUR ---
I called [facility] Transfer Center and was left on hold for 10 minutes-left message asking for an update on the status of the transfer.
--- NOTE | 2020-03-16 10:59 | NUR ---
Patient will be going to [facility] room 458B, nurse to call report to [phone]-Dr. Cosme Caraballo is the accepting hospitalist, Dr. Lew is the accepting vascular surgeon. I called [facility] and spoke with Anthony, pick up and delivery driver time set for 1300-critical care transport due to heparin drip. I called [facility] and left message making them aware of pick up and delivery driver time. I spoke with nurse Margarette and made her aware of room assignment/pick up and delivery driver time-reminded her to have chart copied and all radiology procedures placed on a disc.
--- NOTE | 2020-03-16 11:15 | NUR ---
Patient receiving breathing treatment with RT at bedside. Patient stable.
[2020-03-16 12:55] VITALS: BP 120/70
[2020-03-16 12:55] LABS: INR 1.03 (0.9-1.15); Partial Thromboplastin Time 40.9 sec (23.0-31.2)
[2020-03-16] MEDS: HEPARIN DRIP/D5W 100UNITS/ML 250 ML IV SCH (13:13)
--- NOTE | 2020-03-16 13:15 | NUR ---
Patient resting comfortably in bed with no distress noted. New bag heparin drip started. Patient stable.
--- NOTE | 2020-03-16 13:30 | NUR ---
Called report to Nico Aguirre RN at [facility], .
--- NOTE | 2020-03-16 13:40 | NUR ---
Patient previously aware of transfer to [facility], Room 458B. Central line dressing changed. Transport personnel at bedside.
--- NOTE | 2020-03-16 13:50 | NUR ---
Discharged Patient transferred in stable condition via ambulance; heparin drip to infuse during transport.
[2020-03-17] MEDS ORDERED: NICOTINE 21MG/24 HR TOPICAL PATCH TD SCH (10:00)
== END 2020-03-16 13:50 | disposition short-term general hospital (02) | DRG 197 ==
LOC: EDBD 14:09 → ER 14:09 → OVERFLOW 14:10 → TELE-CENTR 03-15 10:49
PROVIDERS: ADMIT Nurse Practitioner Acute Care; ATTEND Internal Medicine
PROC: 02HV33Z Insertion of Infusion Device into Superior Vena Cava, Percutaneous Approach (ICD-10-PCS; principal; 2020-03-16)
DX: I82.431 Acute embolism and thrombosis of right popliteal vein (principal); I70.211 Atherosclerosis of native arteries of extremities with intermittent claudication, right leg; I48.92 Unspecified atrial flutter; I25.10 Atherosclerotic heart disease of native coronary artery without angina pectoris; I13.0 Hypertensive heart and chronic kidney disease with heart failure and stage 1 through stage 4 chronic kidney disease, or unspecified chronic kidney disease; N18.9 Chronic kidney disease, unspecified; I50.9 Heart failure, unspecified; N17.9 Acute kidney failure, unspecified; E87.6 Hypokalemia; D68.59 Other primary thrombophilia; I10 Essential (primary) hypertension; E44.1 Mild protein-calorie malnutrition; E66.9 Obesity, unspecified; N50.9 Disorder of male genital organs, unspecified; E11.9 Type 2 diabetes mellitus without complications; F17.210 Nicotine dependence, cigarettes, uncomplicated; F12.90 Cannabis use, unspecified, uncomplicated; E78.00 Pure hypercholesterolemia, unspecified; Z79.01 Long term (current) use of anticoagulants; Z79.82 Long term (current) use of aspirin; Z98.61 Coronary angioplasty status; Z95.818 Presence of other cardiac implants and grafts; Z79.899 Other long term (current) drug therapy; Z90.49 Acquired absence of other specified parts of digestive tract; I25.2 Old myocardial infarction; Z82.49 Family history of ischemic heart disease and other diseases of the circulatory system; Z83.3 Family history of diabetes mellitus; Z83.42 Family history of familial hypercholesterolemia; Z68.39 Body mass index [BMI] 39.0-39.9, adult; Z20.828 Contact with and (suspected) exposure to other viral communicable diseases; J44.9 Chronic obstructive pulmonary disease, unspecified
CPT/HCPCS: 36415; 70450; 71045; 71275; 76700; 80053; 80307; 81001; 82962; 83036; 83605; 83880; 84100; 84484; 84550; 85025; 85610; 85730; 87040; 87077; 87186; 87426; 93005; 93306; 93926; 93971; 94640; 99291; G0378; J0153; J0696; J1815; J1885; J2405; J3490

== ENCOUNTER 2020-04-10 09:22 | Inpatient (IN) | payer MEDICAID ==
[~2020-04-10] VITALS: Ht 170.2 cm; Wt 106.0 kg
[2020-04-10] VITALS (7 sets, daily range): BP systolic 162–187; BP diastolic 67–92
[~2020-04-10 09:22] MED LIST changes: +ASPI-231 PO; +CLO01T PO; +RIV20T PO
[2020-04-10 10:59] LABS: Basophils # (auto) 0.1 10 ^3/uL (0-0.2); Eosinophils # (auto) 0 10 ^3/uL (0-0.8); Nucleated Red Blood Cells % 0.1 %
[2020-04-10 11:01] LABS: Basophils % (auto) 0.7 % (0.0-2.0); Hematocrit 19.5 % (41.0-53.0); Lymphocytes # (auto) 1.8 10 ^3/uL (0.4-5.4); Lymphocytes % (auto) 23.6 % (10.0-50.0); Mean Corpuscular Hemoglobin 24.2 pg (28.0-32.0); Mean Corpuscular Hgb Conc. 33.1 g/dL (32.0-36.0); Mean Corpuscular Volume 73.3 fL (80.0-100.0); Monocytes # (auto) 0.4 10 ^3/uL (0-1.3); Monocytes % (auto) 5.2 % (0.0-12.0); Neutrophils # (auto) 5.4 10 ^3/uL (1.6-8.6); Neutrophils % (auto) 70.5 % (37.0-80.0); Platelet Count (auto) 472 10^3/uL (140-450); Red Blood Cells 2.66 10^6/uL (4.5-5.90); White Blood Cell 7.7 10^3/uL (4.4-10.8)
[2020-04-10 11:04] LABS: Hemoglobin 6.4 g/dL (13.5-17.5); Red Cell Distribution Width 21.1 % (11.8-14.3)
[2020-04-10 11:16] LABS: INR 1.04 (0.9-1.15); Partial Thromboplastin Time 21.5 sec (23.0-31.2)
[2020-04-10 11:21] LABS: Albumin 3.1 g/dL (3.4-5.0); Calcium 9.1 mg/dL (8.5-10.1); Magnesium 2.1 mg/dL (1.6-2.6); Potassium 3.7 mmol/L (3.5-5.1)
[2020-04-10 11:28] LABS: BUN/Creatinine Ratio 21.4; Bilirubin, Total 0.4 mg/dL (0.2-1.0); Total Protein 9.5 g/dL (6.4-8.2)
[2020-04-10 12:06] LABS: Urine Bacteria NONE SEEN /hpf (None Seen); Urine Blood Negative /uL (Negative); Urine Specific Gravity 1.016 (1.001-1.035); Urine WBC 2 /hpf (0 - 3)
[2020-04-10] MEDS ORDERED: NITROGLYCERIN 0.4 MG SL TAB SL PRN (13:15)
[2020-04-10] MEDS ORDERED: MORPHINE SULF INJ 2 MG/ML SYRINGE 1ML IV PRN (13:15)
[2020-04-10] MEDS ORDERED: SODIUM CHLORIDE 0.9% 1,000 ML IV ONE (13:15)
[2020-04-10] MEDS ORDERED: LABETALOL HCL 5 MG/ML 4ML SYRINGE IV PRN (13:15)
[2020-04-10] MEDS: ONDANSETRON HCL 4 MG/2 ML VIAL IV PRN ×3 (13:28→23:36)
[2020-04-10] MEDS: HYDROmorphone HCL 2 MG/ML VL IV PRN ×3 (13:28→23:36)
[2020-04-10] MEDS ORDERED: FURO40TA4 PO (16:48)
[2020-04-10] MEDS ORDERED: HYDR-531 PO (16:48)
[2020-04-10] MEDS ORDERED: POTA10TA32 PO (16:48)
[2020-04-10] MEDS ORDERED: AMLO10TA13 PO (16:48)
[2020-04-10] MEDS ORDERED: CLOP75TA28 PO (16:54)
[2020-04-10] MEDS ORDERED: GABA300C10 PO (16:55)
[2020-04-10] MEDS ORDERED: DOCU100C8 PO (16:57)
[2020-04-10] MEDS ORDERED: TRAM50TA2 PO (16:59)
[2020-04-10] MEDS: SUCRALFATE 1 GM/10 ML ORAL SUSP PO SCH (17:05)
[2020-04-10] MEDS: METOPROLOL TARTRATE 50 MG TAB PO SCH (22:00)
[2020-04-10] MEDS: PANTOPRAZOLE 40 MG/10 ML VIAL INJ IV SCH (22:00)
[2020-04-10 22:07] LABS: Basophils # (auto) 0 10 ^3/uL (0-0.2); Basophils % (auto) 0.3 % (0.0-2.0); Eosinophils # (auto) 0 10 ^3/uL (0-0.8); Monocytes # (auto) 1.1 10 ^3/uL (0-1.3)
[2020-04-10 22:08] LABS: Eosinophils % (auto) 0.1 % (0.0-7.0); Lymphocytes # (auto) 2.7 10 ^3/uL (0.4-5.4); Lymphocytes % (auto) 27.9 % (10.0-50.0); Mean Corpuscular Hemoglobin 25.4 pg (28.0-32.0); Mean Corpuscular Hgb Conc. 33.7 g/dL (32.0-36.0); Mean Corpuscular Volume 75.2 fL (80.0-100.0); Monocytes % (auto) 11.2 % (0.0-12.0); Neutrophils # (auto) 5.9 10 ^3/uL (1.6-8.6); Neutrophils % (auto) 60.5 % (37.0-80.0); Nucleated Red Blood Cells % 0.1 %; Platelet Count (auto) 399 10^3/uL (140-450); Red Blood Cells 2.65 10^6/uL (4.5-5.90); White Blood Cell 9.7 10^3/uL (4.4-10.8)
[2020-04-10 22:09] LABS: Red Cell Distribution Width 22.4 % (11.8-14.3)
[2020-04-10 22:11] LABS: Hemoglobin 6.7 g/dL (13.5-17.5)
[2020-04-11] VITALS (9 sets, daily range): BP systolic 95–128; BP diastolic 58–75
[2020-04-11] MEDS: ONDANSETRON HCL 4 MG/2 ML VIAL IV PRN ×4 (05:03→20:17)
[2020-04-11] MEDS: HYDROmorphone HCL 2 MG/ML VL IV PRN ×4 (05:04→20:17)
[2020-04-11 05:54] LABS: Eosinophils # (auto) 0 10 ^3/uL (0-0.8); Eosinophils % (auto) 0.1 % (0.0-7.0); Monocytes # (auto) 1.1 10 ^3/uL (0-1.3); Nucleated Red Blood Cells % 0.1 %
[2020-04-11 05:57] LABS: Basophils # (auto) 0 10 ^3/uL (0-0.2); Basophils % (auto) 0.4 % (0.0-2.0); Hematocrit 24.6 % (41.0-53.0); Hemoglobin 8.3 g/dL (13.5-17.5); Lymphocytes % (auto) 28.8 % (10.0-50.0); Mean Corpuscular Hemoglobin 26.3 pg (28.0-32.0); Mean Corpuscular Hgb Conc. 33.6 g/dL (32.0-36.0); Mean Corpuscular Volume 78.2 fL (80.0-100.0); Monocytes % (auto) 10.7 % (0.0-12.0); Neutrophils # (auto) 6.2 10 ^3/uL (1.6-8.6); Platelet Count (auto) 407 10^3/uL (140-450); Red Blood Cells 3.15 10^6/uL (4.5-5.90); White Blood Cell 10.3 10^3/uL (4.4-10.8)
[2020-04-11 06:09] LABS: Red Cell Distribution Width 21.9 % (11.8-14.3)
[2020-04-11 06:16] LABS: Potassium 3.7 mmol/L (3.5-5.1)
[2020-04-11 06:21] LABS: BUN/Creatinine Ratio 18.3; Calcium 8.7 mg/dL (8.5-10.1)
[2020-04-11] MEDS: SUCRALFATE 1 GM/10 ML ORAL SUSP PO SCH ×3 (07:06→17:50)
[2020-04-11] MEDS: amLODIPine BESYLATE 5 MG TAB PO SCH (10:08)
[2020-04-11] MEDS: PANTOPRAZOLE 40 MG/10 ML VIAL INJ IV SCH ×2 (10:08→21:40)
[2020-04-11] MEDS: METOPROLOL TARTRATE 50 MG TAB PO SCH ×2 (10:08→22:00)
[2020-04-11] MEDS: CLOPIDOGREL BISULFATE 75 MG TAB PO SCH (10:09)
[2020-04-11] MEDS ORDERED: DEXTROSE (50%) 50ML SYRG IV PRN (13:00)
[2020-04-11] MEDS: ACCU-CHEK COMFORT CURVE STRIP VI SCH ×2 (17:00→21:40)
[2020-04-11] MEDS: InsuLIN REG 1unit/0.01ml Soln (100units/ml) SC SCH ×2 (17:54→21:40)
[2020-04-11 18:55] LABS: Amphetamine Screen, Urine NEGATIVE (NEGATIVE); Barbiturate Scree,Urine NEGATIVE (NEGATIVE); Benzodiazephine Screen, Urine NEGATIVE (NEGATIVE); Cannabinoid Screen, Urine NEGATIVE (NEGATIVE); Cocaine Screen, Urine NEGATIVE (NEGATIVE); Opiate Scree,Urine NEGATIVE (NEGATIVE); Phencyclidine Screen, Urine NEGATIVE (NEGATIVE)
--- NOTE | 2020-04-11 19:30 | NUR ---
Opening Shift Note Assumed care of patient, awake and alert. No S/S of distress/SOB. Pt resting in bed at lowest position, with call baker in reach and bed alarm on. Instructed on POC and to call for assist PRN, will continue to monitor for changes Q1hr and PRN.
[2020-04-12] MEDS: HYDROmorphone HCL 2 MG/ML VL IV PRN ×5 (00:19→21:01)
--- NOTE | 2020-04-12 02:05 | NUR ---
Called/paged Theodore RN OR LPN called to inform of pt unable to sleep. Waiting for call back. Continue care.
[2020-04-12] MEDS: ONDANSETRON HCL 4 MG/2 ML VIAL IV PRN ×2 (02:07→17:14)
--- NOTE | 2020-04-12 02:20 | NUR ---
Called/paged Second page. Theodore PETE called to inform of pt unable to sleep. Waiting for call back. Continue care.
--- NOTE | 2020-04-12 02:30 | NUR ---
returned call Theodore PETE returned call, updated on patient status and reason for call, orders received for Temazepam PO.
[2020-04-12] MEDS: TEMAZEPAM 15 MG CAP PO PRN ×2 (02:42→22:07)
[2020-04-12 05:42] VITALS: BP 109/62
[2020-04-12 05:57] LABS: Hematocrit 23.7 % (41.0-53.0)
[2020-04-12 06:14] LABS: Calcium 8.4 mg/dL (8.5-10.1); Potassium 3.4 mmol/L (3.5-5.1)
[2020-04-12 06:20] LABS: Albumin 2.6 g/dL (3.4-5.0); BUN/Creatinine Ratio 15.3; Bilirubin, Total 0.6 mg/dL (0.2-1.0); Magnesium 2.2 mg/dL (1.6-2.6); Total Protein 7.9 g/dL (6.4-8.2)
[2020-04-12] MEDS: ACCU-CHEK COMFORT CURVE STRIP VI SCH ×4 (06:45→22:07)
[2020-04-12] MEDS: InsuLIN REG 1unit/0.01ml Soln (100units/ml) SC SCH ×4 (06:45→22:00)
[2020-04-12] MEDS: SUCRALFATE 1 GM/10 ML ORAL SUSP PO SCH (06:45)
--- NOTE | 2020-04-12 07:45 | NUR ---
Opening Shift Note Assumed care of patient, awake and alert. No S/S of distress/SOB. Patient complaining of feet pain, will look in chart for next pain medication due. Instructed on POC and to call for assist PRN, will continue to monitor for changes Q1hr and PRN. Fall precautions in place per safety protocol.
[2020-04-12 08:38] VITALS: BP 105/69
[2020-04-12] MEDS ORDERED: NALOXONE HCL 0.4 MG/ML VIAL ONE (08:39)
[2020-04-12] MEDS ORDERED: FLUMAZENIL 0.1 MG/ML INJ 10ML MDV IV ONE (08:39)
[2020-04-12] MEDS ORDERED: diphenhdrAMINE HCL 50 MG/1 ML VL ONE (08:39)
[2020-04-12] MEDS ORDERED: LIDOCAINE VISCOUS 2% 15ML UD ONE (08:39)
--- NOTE | 2020-04-12 08:41 | NUR ---
Covid Patient rena covid swab collected and walked to lab.
--- NOTE | 2020-04-12 09:38 | NUR ---
GI Lab Patient taken to GI lab for EGD procedure with MD Nobles. Will cont to monitor when he returns to room.
[2020-04-12] MEDS: fentaNYL CITRATE 100 MCG/2 ML VL ONE ×2 (09:46→09:50)
[2020-04-12] MEDS: MIDAZOLAM HCL 5 MG/ML-1ML VIAL ONE ×2 (09:46→09:50)
[2020-04-12] MEDS: METOPROLOL TARTRATE 50 MG TAB PO SCH ×2 (10:50→22:07)
[2020-04-12] MEDS: CLOPIDOGREL BISULFATE 75 MG TAB PO SCH (10:51)
[2020-04-12] MEDS: amLODIPine BESYLATE 5 MG TAB PO SCH (10:51)
--- NOTE | 2020-04-12 11:56 | NUR ---
Hospitalist MD Tse at bedside, aware of patient status. New orders for potassium replacement received, will carry out new orders and cont to monitor patient.
[2020-04-12] MEDS ORDERED: POTASSIUM CHL 20 Meq TABLET PO ONE (12:00)
[2020-04-12 13:00] VITALS: BP 94/59
[2020-04-12] MEDS ORDERED: LACTULOSE 20Gm/30ML SOLN PO PRN (14:00)
[2020-04-12] MEDS ORDERED: FERROUS SULFATE 325 MG TAB PO ONE (14:00)
[2020-04-12] MEDS ORDERED: FER325T PO (14:02)
[2020-04-12] MEDS ORDERED: PANT40TA2 PO (14:02)
--- NOTE | 2020-04-12 15:08 | NUR ---
D/C Planning Per social service consult for home health safety evaluation, medication management and vitals. Faxed clinical information to [facility]. Per Fern with [facility] patient has been accepted and service to start within 24-48hrs upon d/c day. Obtain authorization from [facility] [id number].
--- NOTE | 2020-04-12 15:09 | NUR ---
Nutrition Assessment Notes Please refer to link for full assessment notes. Est Energy needs: 5988-1412 kcals (17-20 kcal/kgBW) Est Protein needs: 82-102 gms/day (0.8-1.0 gm/kgBW) Will continue to monitor and reassess prn. Addendum: 04/12/20 at [address] Amended: Links added.
--- NOTE | 2020-04-12 16:12 | NUR ---
D/C Planning Regarding social service consult for walker and bedside commode. Faxed clinical information to [facility]. Per Argelia with [employer] they provide patient with a walker on March 29, 2020 and they will deliver bedside commode to patient home.
[2020-04-12 16:38] VITALS: BP 105/61
[2020-04-12] MEDS: FERROUS SULFATE 325 MG TAB PO SCH (17:59)
[2020-04-12] MEDS ORDERED: CALCIUM CARB 500 MG CHEW TAB PO PRN (20:45)
[2020-04-12] MEDS ORDERED: DOCUSATE SOD 100 MG CAP PO PRN (21:15)
--- NOTE | 2020-04-12 21:30 | NUR ---
Patient refused insulin Patient's blood sugar checked. Glucose resulted at 144. Pt refused insulin. Will document in
[2020-04-12 22:00] VITALS: BP 111/63
[2020-04-13] MEDS: HYDROmorphone HCL 2 MG/ML VL IV PRN ×2 (01:10→05:17)
[2020-04-13 05:00] VITALS: BP 122/70
[2020-04-13 05:57] LABS: Hematocrit 23.3 % (41.0-53.0); Hemoglobin 7.8 g/dL (13.5-17.5)
[2020-04-13 06:24] LABS: Potassium 3.6 mmol/L (3.5-5.1)
[2020-04-13] MEDS: InsuLIN REG 1unit/0.01ml Soln (100units/ml) SC SCH ×2 (06:30→11:30)
[2020-04-13] MEDS: ACCU-CHEK COMFORT CURVE STRIP VI SCH ×2 (06:30→11:30)
--- NOTE | 2020-04-13 06:30 | NUR ---
POC Glucose Patient's blood sugar checked, resulted at 98. No insulin coverage needed. Pt resting comfortably in bed. Call baker within reach. Will continue to monitor.
[2020-04-13 06:34] LABS: Albumin 2.4 g/dL (3.4-5.0); Bilirubin, Direct 0.2 mg/dL (0-0.2); Bilirubin, Total 0.3 mg/dL (0.2-1.0); Total Protein 7.4 g/dL (6.4-8.2)
--- NOTE | 2020-04-13 07:45 | NUR ---
Opening Shift Note Assumed care of patient, awake and alert. No S/S of distress/SOB or pain. Instructed on POC and to call for assist PRN, will continue to monitor for changes Q1hr and PRN. Fall precautions in place per safety protocol.
[2020-04-13] MEDS: FERROUS SULFATE 325 MG TAB PO SCH (07:56)
[2020-04-13 08:56] VITALS: BP 105/72
[2020-04-13] MEDS: CLOPIDOGREL BISULFATE 75 MG TAB PO SCH (09:57)
[2020-04-13] MEDS: METOPROLOL TARTRATE 50 MG TAB PO SCH (09:57)
[2020-04-13] MEDS ORDERED: PANTOPRAZOLE 40 MG TAB PO SCH (10:00)
--- NOTE | 2020-04-13 10:30 | NUR ---
Hospitalist MD Tse at bedside, aware of patient status. Per MD Tse patient has been cleared by MD Nobles for discharge. Per MD Tse transfuse 1 unit of PRBC's then discharge patient. Orders read back at verified. Will carry out new orders and cont to monitor patient.
--- NOTE | 2020-04-13 11:10 | NUR ---
Blood Transfusion Patient refusing blood transfusion at this time. Notified MD Tse. Per MD Tse, she will place dc order for patient. Will cont with discharge.
--- NOTE | 2020-04-13 12:08 | NUR ---
assessment Patient is a 59 year old male who is alert and oriented. Prior to admission patient lived home alone and functioned with assistance. Per patient he will return home to his prior living arrangements post discharge and family will transport him home. Patient informed me he has a cane for home use, but when Sylvia tried to order him a fww the [employer] said they gave him one the end of March 2020. Per patient he has a SS caregiver. Patient also requested a bedside commode. BSC will be delivered to patients home. Patient will also benefit from [facility] for safety and PT. I informed patient he has a right to speak to a social media marketing analyst regarding all care. I informed patient he has a right to participate in any and all discharge planning. Patient does not have a POA and advanced directive. I have offered patient information on POA and advanced directives. I informed the patient the advantages and benefits of having an Advanced Directive. Patient verbalized understanding and agreed to discharge plan. Addendum: 04/13/20 at 1215 by Viktoriya HAQ Amended: Links added.
[2020-04-13 12:39] VITALS: BP 115/68
[2020-04-13 13:00] VITALS: BP 115/68
--- NOTE | 2020-04-13 16:00 | NUR ---
Discharge instructions given as ordered. Encourage to follow up with PMD as instructed. All questions and concerns addressed. Patient verbalized understanding. Medication reconciliation form completed and copy given to patient. IV removed with catheter intact, pressure dressing applied. Telemetry unit returned to ICU. Patient taken to vehicle via wheelchair with all personal belongings, accompanied by staff. No distress noted at time of departure.
== END 2020-04-13 16:00 | disposition home health service (06) | DRG 254 ==
LOC: ER 09:22 → EDBD 09:22 → TELE 09:23 → TELE-WESTW 04-11 10:46
PROVIDERS: ADMIT Nurse Practitioner Acute Care; ATTEND Internal Medicine
PROC: 30233N1 Transfusion of Nonautologous Red Blood Cells into Peripheral Vein, Percutaneous Approach (ICD-10-PCS; principal; 2020-04-10)
PROC: 0DJ08ZZ Inspection of Upper Intestinal Tract, Via Natural or Artificial Opening Endoscopic (ICD-10-PCS; 2020-04-12)
DX: K92.1 Melena (principal); D68.59 Other primary thrombophilia; I48.0 Paroxysmal atrial fibrillation; E86.0 Dehydration; N18.30 Chronic kidney disease, stage 3 unspecified; R79.89 Other specified abnormal findings of blood chemistry; I25.10 Atherosclerotic heart disease of native coronary artery without angina pectoris; E78.5 Hyperlipidemia, unspecified; E66.01 Morbid (severe) obesity due to excess calories; B19.20 Unspecified viral hepatitis C without hepatic coma; E11.22 Type 2 diabetes mellitus with diabetic chronic kidney disease; F10.10 Alcohol abuse, uncomplicated; F12.90 Cannabis use, unspecified, uncomplicated; I13.0 Hypertensive heart and chronic kidney disease with heart failure and stage 1 through stage 4 chronic kidney disease, or unspecified chronic kidney disease; Z95.5 Presence of coronary angioplasty implant and graft; I25.2 Old myocardial infarction; I48.92 Unspecified atrial flutter; K70.9 Alcoholic liver disease, unspecified; E11.51 Type 2 diabetes mellitus with diabetic peripheral angiopathy without gangrene; Z20.828 Contact with and (suspected) exposure to other viral communicable diseases; E88.09 Other disorders of plasma-protein metabolism, not elsewhere classified; F17.210 Nicotine dependence, cigarettes, uncomplicated; I50.9 Heart failure, unspecified; I70.8 Atherosclerosis of other arteries; F19.90 Other psychoactive substance use, unspecified, uncomplicated; K21.9 Gastro-esophageal reflux disease without esophagitis; D62 Acute posthemorrhagic anemia; Y90.9 Presence of alcohol in blood, level not specified; J44.9 Chronic obstructive pulmonary disease, unspecified; Z79.02 Long term (current) use of antithrombotics/antiplatelets; Z79.84 Long term (current) use of oral hypoglycemic drugs; Z79.899 Other long term (current) drug therapy; Z82.49 Family history of ischemic heart disease and other diseases of the circulatory system; Z83.3 Family history of diabetes mellitus; Z86.73 Personal history of transient ischemic attack (TIA), and cerebral infarction without residual deficits; Z86.79 Personal history of other diseases of the circulatory system; Z90.49 Acquired absence of other specified parts of digestive tract; Z68.36 Body mass index [BMI] 36.0-36.9, adult
CPT/HCPCS: 36415; 71045; 74176; 80048; 80053; 80076; 80307; 81001; 82962; 83690; 83735; 84132; 84484; 85014; 85018; 85025; 85610; 85730; 86850; 86900; 86901; 86920; 87040; 87081; 87426; 93005; 93306; 97163; 99291; C9113; G0378; J2250; J2405; J3490

== ENCOUNTER 2020-04-19 12:22 | Inpatient (IN) | payer MEDICAID ==
[~2020-04-19] VITALS: Ht 185.4 cm; Wt 107.1 kg
[~2020-04-19 12:22] MED LIST changes: -AML5T PO; -BISA-4 PO; -CLO01T PO; +CLOP75TA28 PO; +DOCU100C8 PO; +FER325T PO; +FURO40TA4 PO; +GABA300C10 PO; -HCTZ25T GT; +HYDR-531 PO; -PANT40T PO; +PANT40TA2 PO; +POTA10TA32 PO; +TRAM50TA2 PO
[2020-04-19] MEDS ORDERED: SODIUM CHLORIDE 0.9% 1,000 ML IVB ONE (13:00)
[2020-04-19] MEDS ORDERED: ONDANSETRON HCL 4 MG/2 ML VIAL ONE (14:59)
[2020-04-19] MEDS ORDERED: ONDANSETRON HCL 4 MG/2 ML VIAL IV ONE ×2 (15:00→16:45)
[2020-04-19 15:08] LABS: Basophils # (auto) 0.1 10 ^3/uL (0-0.2); Eosinophils # (auto) 0.1 10 ^3/uL (0-0.8); Hemoglobin 8.6 g/dL (13.5-17.5); Mean Corpuscular Hemoglobin 23.9 pg (28.0-32.0); Mean Corpuscular Hgb Conc. 32.2 g/dL (32.0-36.0); Mean Corpuscular Volume 74.3 fL (80.0-100.0); Monocytes # (auto) 0.5 10 ^3/uL (0-1.3); Monocytes % (auto) 5.3 % (0.0-12.0)
[2020-04-19 15:10] LABS: Hematocrit 26.6 % (41.0-53.0); Lymphocytes # (auto) 2.8 10 ^3/uL (0.4-5.4); Lymphocytes % (auto) 30.8 % (10.0-50.0); Neutrophils # (auto) 5.7 10 ^3/uL (1.6-8.6); Neutrophils % (auto) 61.9 % (37.0-80.0); Nucleated Red Blood Cells % 0.2 %; Platelet Count (auto) 403 10^3/uL (140-450); Red Blood Cells 3.59 10^6/uL (4.5-5.90); White Blood Cell 9.2 10^3/uL (4.4-10.8)
[2020-04-19 15:21] LABS: Red Cell Distribution Width 24.9 % (11.8-14.3)
[2020-04-19 15:41] LABS: INR 1.05 (0.9-1.15); Partial Thromboplastin Time 23.7 sec (23.0-31.2)
[2020-04-19 16:26] LABS: Urine Bacteria NONE SEEN /hpf (None Seen); Urine Blood Negative /uL (Negative); Urine Hyaline Cast FEW /lpf (0 - 2); Urine Mucus FEW (None Seen); Urine Specific Gravity 1.016 (1.001-1.035); Urine WBC 2 /hpf (0 - 3)
[2020-04-19 16:42] LABS: Alcohol, Urine < 3.0 mg/dL (0-10); Amphetamine Screen, Urine NEGATIVE (NEGATIVE); Barbiturate Scree,Urine NEGATIVE (NEGATIVE); Benzodiazephine Screen, Urine NEGATIVE (NEGATIVE); Cannabinoid Screen, Urine NEGATIVE (NEGATIVE); Cocaine Screen, Urine NEGATIVE (NEGATIVE); Opiate Scree,Urine NEGATIVE (NEGATIVE); Phencyclidine Screen, Urine NEGATIVE (NEGATIVE)
[2020-04-19] MEDS ORDERED: MORPHINE SULF INJ 2 MG/ML SYRINGE 1ML IV ONE (16:45)
[2020-04-19] MEDS ORDERED: MORPHINE SULF INJ 2 MG/ML SYRINGE 1ML IV PRN (17:45)
[2020-04-19] MEDS ORDERED: NITROGLYCERIN 0.4 MG SL TAB SL PRN (17:45)
[2020-04-19] MEDS: ONDANSETRON HCL 4 MG/2 ML VIAL IV PRN (19:35)
[2020-04-19] MEDS: MORPHINE SULF INJ 2 MG/ML SYRINGE 1ML IV PRN (19:35)
--- NOTE | 2020-04-19 20:01 | NUR ---
ER CALLED GI CONSULT TO DR.N LINDSAY.
--- NOTE | 2020-04-19 21:11 | NUR ---
Telemetry admit from ER LINDEN DIETZ admitted to Telemetry unit after SBAR received. Patient oriented to Gerardo Mattson, primary RN, unit, room, bed, and unit policies regarding patient care and visiting hours. Patient now on continuous telemetry monitoring, tele box # [53] and telemetry reading on arrival to unit is [ST 106]. Patient weighed by bedscale and encouraged to call if they need something. All questions and concerns addressed, patient verbalized understanding. Note: []
[2020-04-19 21:37] VITALS: BP 126/69
[2020-04-19] MEDS: METOPROLOL TARTRATE 50 MG TAB PO SCH (21:40)
[2020-04-19] MEDS: FERROUS SULFATE 325 MG TAB PO SCH (21:40)
[2020-04-19] MEDS: GABAPENTIN 300 MG CAP PO SCH (21:41)
[2020-04-19 22:35] LABS: Albumin 2.6 g/dL (3.4-5.0); Anion Gap 6 (5-15); Blood Urea Nitrogen 9 mg/dL (7-18); Calcium 8.5 mg/dL (8.5-10.1); Carbon Dioxide 24 mmol/L (21-32); Chloride 108 mmol/L (98-107); Glucose 102 mg/dL (74-106); Potassium 3.7 mmol/L (3.5-5.1); Sodium 138 mmol/L (136-145)
[2020-04-19 22:42] LABS: Alanine Aminotransferase 87 U/L (16-61); Alkaline Phosphatase 127 U/L (45-117); Aspartate Aminotransferase 83 U/L (15-37); BUN/Creatinine Ratio 8.9; Bilirubin, Total 0.4 mg/dL (0.2-1.0); GFR African American 97 mL/min; GFR Non-African American 80 mL/min; Total Protein 7.9 g/dL (6.4-8.2)
[2020-04-20] MEDS: ONDANSETRON HCL 4 MG/2 ML VIAL IV PRN ×3 (00:09→12:06)
[2020-04-20] MEDS: MORPHINE SULF INJ 2 MG/ML SYRINGE 1ML IV PRN ×3 (00:09→12:33)
[2020-04-20 05:00] VITALS: BP 123/81
[2020-04-20] MEDS: GABAPENTIN 300 MG CAP PO SCH ×3 (05:52→21:56)
--- NOTE | 2020-04-20 05:53 | NUR ---
PATIENT WOKE UP FROM ABD PAIN @ 12/16, MEDICATED PATIENT ORDERED. CONTINUE TO MONITOR.
[2020-04-20 06:23] LABS: Potassium 3.7 mmol/L (3.5-5.1)
[2020-04-20 06:25] LABS: Basophils # (auto) 0.1 10 ^3/uL (0-0.2); Basophils % (auto) 1.5 % (0.0-2.0); Eosinophils # (auto) 0.1 10 ^3/uL (0-0.8); Eosinophils % (auto) 1.4 % (0.0-7.0); Hematocrit 23.2 % (41.0-53.0); Hemoglobin 7.6 g/dL (13.5-17.5); Lymphocytes # (auto) 3.1 10 ^3/uL (0.4-5.4); Lymphocytes % (auto) 41.3 % (10.0-50.0); Mean Corpuscular Hemoglobin 24.3 pg (28.0-32.0); Mean Corpuscular Hgb Conc. 32.6 g/dL (32.0-36.0); Mean Corpuscular Volume 74.4 fL (80.0-100.0); Monocytes # (auto) 0.7 10 ^3/uL (0-1.3); Monocytes % (auto) 9.5 % (0.0-12.0); Neutrophils # (auto) 3.5 10 ^3/uL (1.6-8.6); Neutrophils % (auto) 46.3 % (37.0-80.0); Nucleated Red Blood Cells % 0.3 %; Platelet Count (auto) 351 10^3/uL (140-450); Red Blood Cells 3.11 10^6/uL (4.5-5.90); White Blood Cell 7.5 10^3/uL (4.4-10.8)
[2020-04-20 06:31] LABS: BUN/Creatinine Ratio 9.1; Calcium 8.6 mg/dL (8.5-10.1)
[2020-04-20 09:00] VITALS: BP 140/87
[2020-04-20] MEDS: FERROUS SULFATE 325 MG TAB PO SCH (09:47)
[2020-04-20] MEDS: PANTOPRAZOLE 40 MG/10 ML VIAL INJ IV SCH (09:47)
[2020-04-20] MEDS: METOPROLOL TARTRATE 50 MG TAB PO SCH ×2 (09:48→21:55)
[2020-04-20] MEDS: CLOPIDOGREL BISULFATE 75 MG TAB PO SCH ×2 (09:48→12:31)
[2020-04-20] MEDS ORDERED: ASPirin-EC 81 mg tab PO SCH (10:00)
--- NOTE | 2020-04-20 10:31 | NUR ---
Sherlyn NAVARRO: Sherlyn AUSTIN AT BEDSIDE. INFORMED OF PATIENTS STATUS. INFORMED OF PATIENTS EPISODE OF EMESIS. INFORMED OF TRENDING HGB AND HCT. RECEIVED NEW ORDER FOR STOOL OCCULT. SPOKE WITH US TEVIN WILKERSON REGARDING ORDER FOR ULTRASOUND OF GALLBLADDER PATIENT HAS HAD GALLBLADDER REMOVED. PER Sherlyn LINE CONTINUE WITH US. INFORMED TEVIN WILKERSON. Addendum: 04/20/20 at 1911 by SHAI AMARAL RN RN PATIENT HAD EPISODE OF EMESIS. CLEAR WITH BLACK STREAK. Sherlyn AUSTIN PRESENT AND VISUALIZED EMESIS.
--- NOTE | 2020-04-20 11:00 | NUR ---
SPOKE WITH Sherlyn READ. INFORMED OF PATIENTS RECENT HGB AND HCT. INFORMED THAT PLAVIX WAS HELD. PER Sherlyn READ GIVE PLAVIX AT THIS TIME.
[2020-04-20] MEDS: SODIUM FERR GLUC 62.5MG/5ML 125 MG in SODIUM CHL 0.9% 100 ML IV SCH (12:31)
[2020-04-20 13:00] VITALS: BP 158/93
[2020-04-20 13:19] LABS: Hematocrit 24.5 % (41.0-53.0)
--- NOTE | 2020-04-20 14:22 | NUR ---
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 PER Sherlyn LANCASTER PLEASE ORDER IR CONSULT FOR THROMBIN INJECTION.
--- NOTE | 2020-04-20 14:47 | NUR ---
Assessment Patient is a 59-year-old male who is alert and oriented. Prior to admission patient lived home alone and functioned with assistance from his caregiver Hannah. Patient has a bedside commode and home oxygen for home use. Patient will return home to his prior living arrangements post discharge and Hannah will transport patient home. Advised patient there is a social service consult. Advised patient [facility] provided him with a walker on March and they are unable to provide him with a new one until 5 years from the date he got his first walker. MD order has been faxed to [facility]. Informed patient he has the right to participate in all discharge planning. Patient verbalized understanding and agreed to discharge plan. Jaxson Chung with [facility] order has been received and they will deliver shower chair to patient home. Addendum: 04/20/20 at 1453 by LAURENCE MISTRY SS Amended: Links added.
--- NOTE | 2020-04-20 16:03 | NUR ---
CALLED AND SPOKE WITH Sherlyn READ. INFORMED OF RESULTS FROM US. INSTRUCTED TO CANCEL CARDIOLOGY AND IR CONSULT. WILL FOLLOW THROUGH.
[2020-04-20 17:10] VITALS: BP 90/51
[2020-04-20 18:00] VITALS: BP 150/91
[2020-04-20 19:34] LABS: Hematocrit 27.2 % (41.0-53.0); Hemoglobin 8.5 g/dL (13.5-17.5)
--- NOTE | 2020-04-20 19:41 | NUR ---
RECEIVED PATIENT FROM DAY SHIFT RN. PATIENT RESTING IN BED WITH EYES CLOSED. NO S/S OF DISTRESS NOTED. NO S/S OF PAIN NOTED AT THIS TIME. BED IN LOWEST LOCKED POSITION WITH SIDE RAILS UP X 2. CALL MEDINA WITHIN REACH. ALARM ON. CONTINUE TO MONITOR FOR CHANGES Q1H AND PRN.
[2020-04-20 21:43] VITALS: BP 118/80
[2020-04-21 00:49] LABS: Hematocrit 24.2 % (41.0-53.0); Hemoglobin 7.8 g/dL (13.5-17.5)
[2020-04-21] MEDS: MORPHINE SULF INJ 2 MG/ML SYRINGE 1ML IV PRN (00:50)
[2020-04-21] MEDS: ONDANSETRON HCL 4 MG/2 ML VIAL IV PRN (00:50)
[2020-04-21 05:17] VITALS: BP 93/60
[2020-04-21] MEDS: GABAPENTIN 300 MG CAP PO SCH (06:00)
--- NOTE | 2020-04-21 08:15 | NUR ---
Opening Shift Note Assumed care of patient, awake, alert, and oriented. No S/S of distress/SOB or pain. Bed in lowest/locked position, bed rails up x2, call light within reach. Instructed on POC and to call for assist PRN. Will continue to monitor for changes Q1hr and PRN.
[2020-04-21 09:00] VITALS: BP 88/47
[2020-04-21] MEDS: METOPROLOL TARTRATE 50 MG TAB PO SCH (09:17)
[2020-04-21] MEDS: PANTOPRAZOLE 40 MG/10 ML VIAL INJ IV SCH ×2 (09:25→10:00)
[2020-04-21] MEDS: CLOPIDOGREL BISULFATE 75 MG TAB PO SCH (09:26)
--- NOTE | 2020-04-21 09:50 | NUR ---
MD ROUNDS DR READ AT BEDSIDE. NEW ORDERS RECEIVED/WILL CARRY OUT. WILL CONTINUE TO MONITOR
[2020-04-21] MEDS: SODIUM FERR GLUC 62.5MG/5ML 125 MG in SODIUM CHL 0.9% 100 ML IV SCH (12:00)
[2020-04-21 12:21] VITALS: BP 88/47
--- NOTE | 2020-04-21 12:39 | NUR ---
DISCHARGE FAX PATIENT PRIMARY CARE PROVIDER FAX # NOT AVAILABLE ON THE WEB, CALLED AND OFFICE IS CLOSED FOR THE DAY.
--- NOTE | 2020-04-21 13:50 | NUR ---
JANICE CALLED [facility] . PER JANICE; HE WOULD BE HERE WITHIN 30 MINUTES
--- NOTE | 2020-04-21 14:39 | NUR ---
Discharge instructions given as ordered. Encourage to follow up with PMD as instructed. All questions and concerns addressed. Patient verbalized understanding. IV removed with catheter intact, pressure dressing applied. Telemetry unit returned to ICU. Patient taken to vehicle via wheelchair with all personal belongings, accompanied by staff. No distress noted at time of departure.
== END 2020-04-21 14:40 | disposition home or self-care (01) | DRG 813 ==
LOC: ER 12:22 → EDBD 12:22 → TELE 12:23 → TELE-WESTW 20:40
PROVIDERS: ADMIT Nurse Practitioner Acute Care; ATTEND Internal Medicine
DX: I97.648 Postprocedural seroma of a circulatory system organ or structure following other circulatory system procedure (principal); E44.0 Moderate protein-calorie malnutrition; I48.92 Unspecified atrial flutter; I13.0 Hypertensive heart and chronic kidney disease with heart failure and stage 1 through stage 4 chronic kidney disease, or unspecified chronic kidney disease; I82.501 Chronic embolism and thrombosis of unspecified deep veins of right lower extremity; G93.89 Other specified disorders of brain; E11.22 Type 2 diabetes mellitus with diabetic chronic kidney disease; I50.9 Heart failure, unspecified; E11.51 Type 2 diabetes mellitus with diabetic peripheral angiopathy without gangrene; N18.30 Chronic kidney disease, stage 3 unspecified; I25.10 Atherosclerotic heart disease of native coronary artery without angina pectoris; E66.9 Obesity, unspecified; B19.20 Unspecified viral hepatitis C without hepatic coma; E78.5 Hyperlipidemia, unspecified; K92.1 Melena; F12.90 Cannabis use, unspecified, uncomplicated; I67.2 Cerebral atherosclerosis; F17.210 Nicotine dependence, cigarettes, uncomplicated; K21.9 Gastro-esophageal reflux disease without esophagitis; D50.0 Iron deficiency anemia secondary to blood loss (chronic); J44.9 Chronic obstructive pulmonary disease, unspecified; Y83.2 Surgical operation with anastomosis, bypass or graft as the cause of abnormal reaction of the patient, or of later complication, without mention of misadventure at the time of the procedure; Y71.3 Surgical instruments, materials and cardiovascular devices (including sutures) associated with adverse incidents; Z68.31 Body mass index [BMI] 31.0-31.9, adult; I25.2 Old myocardial infarction; Y92.89 Other specified places as the place of occurrence of the external cause; Z79.02 Long term (current) use of antithrombotics/antiplatelets; Z79.82 Long term (current) use of aspirin; Z79.899 Other long term (current) drug therapy; Z82.49 Family history of ischemic heart disease and other diseases of the circulatory system; Z83.3 Family history of diabetes mellitus; Z86.73 Personal history of transient ischemic attack (TIA), and cerebral infarction without residual deficits; Z86.79 Personal history of other diseases of the circulatory system; Z95.5 Presence of coronary angioplasty implant and graft; Z98.62 Peripheral vascular angioplasty status
CPT/HCPCS: 36415; 70450; 71045; 76705; 80048; 80053; 80307; 81001; 83735; 83880; 84484; 85014; 85018; 85025; 85610; 85730; 86850; 86900; 86901; 87081; 93005; 93970; 96361; 96374; 96375; C9113; G0378; J2405

== ENCOUNTER 2021-04-20 16:26 | Emergency (ER) | payer MEDICAID ==
[~2021-04-20] VITALS: Ht 170.2 cm; Wt 113.4 kg
[~2021-04-20 16:26] MED LIST changes: -ASPI-231 PO; +DOCU100C10 PO; -DOCU100C8 PO; -RIV20T PO
[2021-04-20] MEDS ORDERED: SODIUM CHLORIDE 0.9% 1,000 ML IVB ONE (17:00)
[2021-04-20 18:12] LABS: Basophils # (auto) 0.1 10 ^3/uL (0-0.2); Basophils % (auto) 0.6 % (0.0-2.0); Eosinophils # (auto) 0 10 ^3/uL (0-0.8); Eosinophils % (auto) 0.1 % (0.0-7.0); Hematocrit 36.9 % (41.0-53.0); Hemoglobin 11.8 g/dL (13.5-17.5); Lymphocytes # (auto) 3.6 10 ^3/uL (0.4-5.4); Lymphocytes % (auto) 30.9 % (10.0-50.0); Mean Corpuscular Hemoglobin 20.8 pg (28.0-32.0); Mean Corpuscular Hgb Conc. 32.1 g/dL (32.0-36.0); Mean Corpuscular Volume 64.9 fL (80.0-100.0); Monocytes # (auto) 1.2 10 ^3/uL (0-1.3); Monocytes % (auto) 9.9 % (0.0-12.0); Neutrophils # (auto) 6.9 10 ^3/uL (1.6-8.6); Neutrophils % (auto) 58.5 % (37.0-80.0); Red Blood Cells 5.68 10^6/uL (4.5-5.90); White Blood Cell 11.8 10^3/uL (4.4-10.8)
[2021-04-20 18:25] LABS: Alanine Aminotransferase 100 U/L (16-61); Albumin 2.8 g/dL (3.4-5.0); Amylase 64 U/L (25-115); Anion Gap 9 (5-15); Aspartate Aminotransferase 108 U/L (15-37); BUN/Creatinine Ratio 17.8; Blood Alcohol < 3.0 mg/dL (0-5); Blood Urea Nitrogen 24 mg/dL (7-18); Calcium 8.6 mg/dL (8.5-10.1); Carbon Dioxide 26 mmol/L (21-32); Chloride 101 mmol/L (98-107); GFR African American 69 mL/min; GFR Non-African American 57 mL/min; Glucose 115 mg/dL (74-106); Lipase 101 U/L (73-393); Potassium 3.5 mmol/L (3.5-5.1); Sodium 136 mmol/L (136-145)
[2021-04-20 18:27] LABS: Alkaline Phosphatase 163 U/L (45-117); Bilirubin, Total 0.7 mg/dL (0.2-1.0); Total Protein 10.1 g/dL (6.4-8.2)
[2021-04-20] MEDS ORDERED: MORPHINE SULFATE 4 MG/ML SYR/VIAL IV ONE (18:30)
[2021-04-20] MEDS ORDERED: ONDANSETRON HCL 4 MG/2 ML VIAL IV ONE (18:30)
[2021-04-20 18:55] LABS: Red Cell Distribution Width 21.7 % (11.8-14.3)
[2021-04-20] MEDS ORDERED: METOCLOPRAMIDE HCL 5MG/ml INJ 2ml VIAL IV ONE (19:45)
[2021-04-20] MEDS ORDERED: HYDROcodone-ACET 5/325MG TAB PO ONE (22:45)
[2021-04-20] MEDS ORDERED: SOD CHL 0.45% 1,000 ML IV ONE (22:45)
[2021-04-20] MEDS ORDERED: PANTOPRAZOLE 40 MG TAB PO ONE (23:00)
[2021-04-20] MEDS ORDERED: SODIUM CHLORIDE 0.9% 500 ML IV ONE (23:00)
[2021-04-21 01:10] VITALS: BP 125/72
== END 2021-04-21 02:38 | disposition home or self-care (01) ==
LOC: EDBD 16:26 → ER 16:26 → EDUNIT# 16:26 → ER 22:59
DX: K29.00 Acute gastritis without bleeding (principal); D64.9 Anemia, unspecified; R74.8 Abnormal levels of other serum enzymes; I11.0 Hypertensive heart disease with heart failure; I50.9 Heart failure, unspecified; I25.2 Old myocardial infarction; I25.10 Atherosclerotic heart disease of native coronary artery without angina pectoris; E11.9 Type 2 diabetes mellitus without complications; K21.9 Gastro-esophageal reflux disease without esophagitis; F17.210 Nicotine dependence, cigarettes, uncomplicated; Z86.73 Personal history of transient ischemic attack (TIA), and cerebral infarction without residual deficits; Z90.49 Acquired absence of other specified parts of digestive tract; Z79.01 Long term (current) use of anticoagulants; Z79.899 Other long term (current) drug therapy
CPT/HCPCS: 36415; 74176; 80053; 80320; 82150; 83690; 85025; 93005; 96361; 96374; 96375; 99285; J2270; J2405; J2765; J7030; J7040